=== PATIENT | female | born 1935 | race Caucasian/White ===

== ENCOUNTER → 2017-02-20 | Outpatient (CLI) | payer OTHER ==
[~2017-02-20] MED LIST: AMIODARONE HCL200 MG PO; CALCIUM 600 +1 EAC1 PO; CALCIUM 600 +1 EAC4 PO; CALCIUM 600 W/D1 TA1 PO; DIOVAN160 MG PO; DURAGESIC1 EAC2 TOP; ESTRING1 EACH VAG; FISH OIL 1,2001 CAP PO; FISH OIL EC 1,1 EAC2 PO; KLOR-CON PO; LEVAQUIN750 MG PO; LISINOPRIL20 MG PO; MAGNESIUM400 M1 PO; MIRALAX17 GM PO; MULTIVITAMINS1 EAC3 PO; PATIENT'S PHARMACY; PRAVACHOL20 MG PO; PRAVASTATIN SOD20 MG PO; PRILOSEC PO; PROTONIX PO; TAMIFLU75 M1 PO; VALSARTAN-HCTZ1 EAC2 PO; VITAMIN B-12500 MCG PO; VITAMIN C500 M6 PO; VITAMIN C500 MG PO; VITAMIN D2000 UNIT PO; ZOFRAN PO
--- NOTE | ~2017-02-20 | CT55 ---
[facility]. [facility] A Service of [facility] RADIOLOGY TEXT RESULTS PATIENT: RAGHU BANKS LOCATION: [facility] : 36 UNIT #: [id number] AGE: [address]: Devon Torres MD SEX: F ORDER DR: [id number] [address] [address] [id number] P MR#: [id number] Acc #: [id number] NAME: RAGHU BANKS : 1935 SEX: F STUDY DATE/TIME: 02/20/2017 12:43 UNIT: [facility] ROOM: STUDY DESCRIPTION: CT Chest W Con Attending Physician: Devon Torres M.D. Ordering Physician: Devon Torres M.D. Primary Care Physician: Devon Torres M.D. MEDICAL IMAGING REPORT This report is preliminary unless electronic signature is present. EXAM CT scan chest without contrast. HISTORY Right upper lobe infiltrate. Right upper back pain for 3-4 months. Abnormal chest x-ray 02/11/2017. TECHNIQUE Axial 5 mm images were obtained through the chest with IV contrast. The patient was given 100 mL Isovue 370. This CT exam was performed with one or more of the following radiation dose reduction techniques: automatic exposure control, adjustment of mA and/or kV according to patient size, and iterative reconstruction. FINDINGS The left lung is clear. In the right upper lobe there are multiple areas of abnormal density with largest area extending upwards from the alejandro and measuring at least 4-5 cm in diameter. Smaller areas are 3 cm in diameter. The large right paratracheal soft tissue mass measuring 3.8 cm in diameter and there is a large right hilar mass surrounding the right upper lobe bronchus measuring 4.8 cm. The mass also surrounds the right upper lobe pulmonary artery. There is a subcarinal node measuring 2.7 cm in diameter. The visualized portions of the upper abdomen show a densely calcified cyst in the spleen measuring 18 mm in diameter. IMPRESSION 1. There is a large right sided mediastinal mass with soft tissue extending from the level of the marianne up along the right paratracheal region and surrounding the right upper lobe bronchus and the pulmonary artery consistent with malignancy. There are patchy areas of abnormal density in the right upper lobe which could STS. [facility] A Service of [facility] RADIOLOGY TEXT RESULTS PATIENT: RAGHU BANKS LOCATION: [facility] : 36 UNIT #: [id number] AGE: [address]: Devon Torres MD SEX: F ORDER DR: presumably represent direct spread of tumor since these are contiguous with the abnormality. There is also a subcarinal lymph node. 2. The left lung is clear. 1. 1. Dictated by... Rubén Kraft M.D. THIS IS AN ELECTRONICALLY VERIFIED REPORT Rubén Kraft M.D. at 02/23/2017 3:40 PM Juan Antonio TD: 02/21/2017 08:26 JOB #: [id number] MEDICAL IMAGING REPORT Page 1 of 1
[2017-02-20 12:40] LABS: POC - GFR >60.0 mL/min (>60)
== END | disposition home or self-care (01) ==
LOC: SCT 08:25
PROVIDERS: Family Medicine
DX: R06.02 Shortness of breath (principal); R93.8 Abnormal findings on diagnostic imaging of other specified body structures; J98.4 Other disorders of lung; J98.59 Other diseases of mediastinum, not elsewhere classified
CPT/HCPCS: 71260; 82565; Q9967

== ENCOUNTER → 2017-03-12 | Outpatient (CLI) | payer OTHER ==
--- NOTE | ~2017-03-12 | CR71 ---
[facility] A Service of [facility] RADIOLOGY TEXT RESULTS PATIENT: RAGHU BANKS LOCATION: CIVR : 36 UNIT #: [id number] AGE: [address]: Homero Kasper MD SEX: F ORDER DR: [id number] [facility] [address]. [place], [place] [address] [id number] O MR#: [id number] Acc #: [id number] NAME: RAGHU BANKS : 1935 SEX: F STUDY DATE/TIME: 03/12/2017 9:34 UNIT: PSYCHIATRIC ROOM: STUDY DESCRIPTION: CR Chest Single View Attending Physician: Homero Kasper M.D. Ordering Physician: Edis Armendariz M.D. Primary Care Physician: Devon Torres M.D. MEDICAL IMAGING REPORT This report is preliminary unless electronic signature is present EXAM Portable chest x-ray, 03/12/2017. HISTORY Post biopsy. Right-side lung mass post biopsy. TECHNIQUE AP radiograph of chest is viewed in comparison to CT chest 02/20/2017. FINDINGS No acute-appearing bony abnormality. The heart is normal in size. Lungs are well inflated. Abnormal soft tissue right paratracheal region consistent with known mediastinal mass/adenopathy. Soft tissue fullness in the right suprahilar region consistent with findings on CT examination also reflecting known mass. Patchy somewhat nodular densities in the right upper lung zone. Again, appearance is consistent with prior CT and probably reflects a combination of neoplastic disease and perhaps some components of postobstructive pneumonia. Right lower lung zone is clear. The left lung is clear. No pleural effusion or pneumothorax is seen. Dictated by... Edis Macdonald M.D. THIS IS AN ELECTRONICALLY VERIFIED REPORT Edis Macdonald M.D. at 03/13/2017 7:14 PM MARK/tamela TD: 03/12/2017 10:28 JOB #: [id number] MEDICAL IMAGING REPORT [facility] A Service of [facility] RADIOLOGY TEXT RESULTS PATIENT: RAGHU BANKS LOCATION: [facility] #: [id number] : 37 UNIT #: [id number] AGE: [address]: Homero Kasper MD SEX: F ORDER DR: Page 1 of 1 COPY
--- NOTE | ~2017-03-12 | CR72 ---
[facility] A Service of [facility] RADIOLOGY TEXT RESULTS PATIENT: RAGHU BANKS LOCATION: [facility] : 36 UNIT #: [id number] AGE: [address]: Homero Kasper MD SEX: F ORDER DR: [id number] [facility] [address] [facility] [place], [place] [address] [id number] O MR#: [id number] Acc #: [id number] NAME: RAGHU BANKS : 1935 SEX: F STUDY DATE/TIME: 03/12/2017 11:17 UNIT: [facility] ROOM: STUDY DESCRIPTION: CR Chest Single View Portable Attending Physician: Homero Kasper M.D. Ordering Physician: Edis Armendariz M.D. Primary Care Physician: Devon Torres M.D. MEDICAL IMAGING REPORT This report is preliminary unless electronic signature is present EXAM AP portable chest. DATE 03/12/2017 at 1117. HISTORY Right lung mass post biopsy today. COMPARISON AP portable chest 03/12/[address] chest right lung mass biopsy 03/12/2017 at 0836. PA and lateral chest 02/11/2017. FINDINGS No pneumothorax is seen status post right sided mass biopsy earlier today. Airspace disease is present within the right upper lobe. Right paratracheal and right hilar adenopathy is redemonstrated. Background emphysematous changes are present. IMPRESSION 1. No visible pneumothorax status post right lung mass biopsy earlier today. 2. Airspace disease in the right upper lobe unchanged, may represent postobstructive pneumonitis and/or tumor. 3. Abnormal soft tissue thickening in the right paratracheal and right hilar regions consistent with adenopathy seen on recent CT. 4. Mild emphysematous changes. Dictated by... Bettie Wiley M.D. [facility] A Service of [facility] RADIOLOGY TEXT RESULTS PATIENT: RAGHU BANKS LOCATION: [facility] : 36 UNIT #: [id number] AGE: [address]: Homero Kasper MD SEX: F ORDER DR: THIS IS AN ELECTRONICALLY VERIFIED REPORT Bettie Wiley M.D. at 03/13/2017 2:22 PM YUE/tamela TD: 03/12/2017 17:23 JOB #: [id number] MEDICAL IMAGING REPORT Page 1 of 1 COPY
--- NOTE | ~2017-03-12 | CT134 ---
[facility] A Service [facility] RADIOLOGY TEXT RESULTS PATIENT: RAHGU BANKS LOCATION: [facility] : 36 UNIT #: [id number] AGE: [address]: Homero Kasper MD SEX: F ORDER DR: [id number] [place], [place] [address] [id number] O MR#: [id number] Acc #: [id number] NAME: RAGHU BANKS : 1935 SEX: F STUDY DATE/TIME: 03/12/2017 8:36 UNIT: [facility] ROOM: STUDY DESCRIPTION: CT Guide Attending Physician: Homero Kasper M.D. Ordering Physician: Homero Kasper M.D. Primary Care Physician: Devon Torres M.D. MEDICAL IMAGING REPORT This report is preliminary unless electronic signature is present REVISED REPORT SEE ADDENDUM EXAMINATION CT guided lung biopsy HISTORY Right upper lobe mass with right paramediastinal lymphadenopathy. FINDINGS Procedure and attendant risks and options were discussed with the patient. She understands and wishes to proceed. Informed written consent was obtained. Patient was placed in the supine position. Subsequently scanned and the patient marked. The skin was then cleaned with Chlorhexidine and sterilely draped. The skin was anesthetized with Xylocaine. Utilizing a green coaxial system a 19 gauge needle was advanced into the paramediastinal nodes and multiple aspirations and specimens were obtained and submitted to pathology. Initial touch prep is positive for carcinoma. Needle was removed. Hemostasis achieved. Chest x-rays at zero and two hours post procedure show no pneumothorax. Patient was subsequently discharged home to follow up with Dr. Kasper. Permanent CT images were acquired. CONCLUSION 1. Successful CT guided biopsy of the patient's right paramediastinal nodes. ADDENDUM Conscious sedation was administered consistent with IV Versed and Fentanyl [facility] A Service [facility] RADIOLOGY TEXT RESULTS PATIENT: RAGHU BANKS LOCATION: [facility] : 36 UNIT #: [id number] AGE: [address]: Homero Kasper MD SEX: F ORDER DR: and the patient was monitored by the IR nurse during the entire procedure. Dictated by... Edis Armendariz M.D. THIS IS AN ELECTRONICALLY VERIFIED REPORT Edis Armendariz M.D. at 03/13/2017 4:26 PM JW/ada TD: 03/12/2017 13:11 JOB #: [id number] ADDENDUM Clarification of the biopsy target. The right upper mediastinal mass was targeted for biopsy as it was the largest and safest target for biopsy. Dictated by... Vega Pandya M.D. THIS IS AN ELECTRONICALLY VERIFIED REPORT Vega Pandya M.D. at 05/25/2017 8:18 AM DALLAS/tamela TD: 05/21/2017 11:36 JOB #: [id number] CC: Christie/chica Please Delete MEDICAL IMAGING REPORT Page 1 of 1 COPY
[2017-03-12 06:42] LABS: HEMATOCRIT 38.2 % (35.0-45.0); HEMOGLOBIN 13.3 gm/dL (12.0-16.0); MEAN CELL VOLUME 84.4 FL (83-96); MEAN CORPUSCULAR HEMOGLOBIN 29.4 PG (28-34); MEAN CORPUSCULAR HGB CONC 34.9 g/dL (30-36); MEAN PLATELET VOLUME 6.9 FL (6.5-11.5); RED BLOOD COUNT 4.53 X10e (3.90-5.30); RED CELL DISTRIBUTION WIDTH 12.5 % (11.0-15.5); WHITE BLOOD COUNT 5.2 X10e3 (4.0-10.5)
[2017-03-12 06:56] LABS: PARTIAL THROMBOPLASTIN TIME 33.9 SECONDS (23.5-31.3); PROTHROMBIN TIME (PATIENT) 10.7 SECONDS (9.6-11.5)
== END | disposition home or self-care (01) ==
LOC: CIVR 06:14
PROVIDERS: Internal Medicine Medical Oncology
DX: C38.3 Malignant neoplasm of mediastinum, part unspecified (principal); C34.91 Malignant neoplasm of unspecified part of right bronchus or lung; I10 Essential (primary) hypertension; E78.5 Hyperlipidemia, unspecified; R73.09 Other abnormal glucose; K21.9 Gastro-esophageal reflux disease without esophagitis; Z80.1 Family history of malignant neoplasm of trachea, bronchus and lung; Z87.891 Personal history of nicotine dependence; Z80.0 Family history of malignant neoplasm of digestive organs
CPT/HCPCS: 36415; 71010; 77012; 85027; 85610; 85730; 88172; 88173; 88305; 88341; 88342; J2250; J3010

== ENCOUNTER 2017-03-19 10:04 | Inpatient (IN) | payer OTHER ==
--- NOTE | ~2017-03-19 | CT52 ---
[facility] A Service of [facility] RADIOLOGY TEXT RESULTS PATIENT: RAGHU BANKS LOCATION: [facility]- : 36 UNIT #: [id number] AGE: [address]: ADRIAN LIEBERMAN MD SEX: F ORDER DR: [id number] [facility] [address] [facility]. [place], [place] [address] [id number] E MR#: [id number] Acc #: [id number] NAME: RAGHU BANKS : 1935 SEX: F STUDY DATE/TIME: 03/19/2017 11:55 UNIT: [facility] ROOM: STUDY DESCRIPTION: CT Cervical Spine Wo Cont Attending Physician: Baldemar Varghese M.D. Ordering Physician: Baldemar Varghese M.D. Primary Care Physician: Devon Torres M.D. MEDICAL IMAGING REPORT This report is preliminary unless electronic signature is present EXAM Cervical spine CT 03/19 INDICATION Fell today at home. The patient has subsequent headache, dizziness and neck pain. TECHNIQUE Axial images were obtained through the cervical spine without contrast. Multiplanar reformats were obtained. This CT exam was performed with one or more of the following radiation dose reduction techniques: automatic exposure control, adjustment of mA and/or kV according to patient size, and iterative reconstruction. COMPARISON No comparison FINDINGS No acute fracture or malalignment is identified. At C2-3, there is a very mild disc bulge slightly eccentric to the left. No central canal or foraminal narrowing. There is mild bilateral facet arthropathy. At C3-4, mild posterior disc bulge without significant central canal or neuroforaminal stenosis. Mild bilateral facet arthropathy is present. At C4-5, minimal central disc bulge without central canal or foraminal stenosis. There is bilateral facet arthropathy. At C5-6, the disc is within normal limits. There is right greater than [facility] A Service of [facility] RADIOLOGY TEXT RESULTS PATIENT: RAGHU BANKS LOCATION: [facility]- : 36 UNIT #: [id number] AGE: [address]: ADRIAN LIEBERMAN MD SEX: F ORDER DR: left facet arthropathy. At C6-7, minimal disc bulge noted without central canal or foraminal stenosis. At C7-T1, the disc is within normal limits. There is enlargement of the left thyroid lobe, which presumably reflects a goiter. This could be evaluated with outpatient thyroid ultrasound if indicated. Lung windows reveal parenchymal densities in the right apex that are not significantly changed from the chest CT of 02/20/2017. IMPRESSION 1. No acute fracture or malalignment. 2. Relatively mild degenerative disease for patient age. 3. Left thyroid enlargement suggesting a goiter. This could be assessed with outpatient thyroid ultrasound if desired. 4. Stable parenchymal densities in the right lung apex as compared with chest CT of 02/20/2017. Dictated by... Justin Day Jr., M.D. THIS IS AN ELECTRONICALLY VERIFIED REPORT Justin Day Jr., M.D. at 03/20/2017 6:10 AM ZEYNEP/dori TD: 03/19/2017 14:57 JOB #: [id number] MEDICAL IMAGING REPORT Page 1 of 1 COPY
--- NOTE | ~2017-03-19 | DS ---
Unit #: [id number] #: [id number] Patient: RAGHU BANKS [id number] [address] [address] [id number] I MR#: [id number] NAME: RAGHU BANKS ROOM: 305 Age: 81 Sex: F Admission Date: 03/19/2017 : 1935 Discharge Date: Attending Physician: Steffi Reinoso M.D. Primary Care Physician: Devon Torres M.D. DISCHARGE SUMMARY DISCHARGE DIAGNOSES 1. Small cell neuroendocrine lung cancer. 2. 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 3. Fall. 4. Thoracic 12 compression fracture. 5. Anemia, acute on chronic iron deficiency. 6. Atrial fibrillation with rapid ventricular rate. 7. History of gastroesophageal reflux disease. CONSULTATIONS 1. Dr. Myles. 2. Dr. Kasper. PROCEDURES None. DIAGNOSTIC TESTING LAB DATA: Glucose 95, sodium 130, potassium 5, creatinine 1.3. WBC 8, hemoglobin 10.7, platelets 338. Urine osmolality 177. TSH 0.63. IMAGING: CT of the head shows no acute abnormality. X-ray of the lumbar spine shows T12 vertebral loss, around 33%. CT of the cervical spine without contrast shows no acute fracture, mild degenerative changes present. Left thyroid enlargement suggesting goiter present. ALLERGIES None. DISCHARGE MEDICATIONS 1. Amiodarone 200 p.o. daily. 2. Tylenol 650 p.o. q.6 p.r.n. pain. 3. Pravachol 20 daily. 4. Olar 3 fish oil 1,200 mg p.o. daily. 5. Multivitamin 1 tablet daily. 6. Aspirin 81 daily. 7. Percocet 5 mg q.6 p.r.n. pain. 8. Prilosec 20 daily. 9. Calcium with vitamin D 600 mg p.o. daily. 10. Ascorbic acid 500 daily. Unit #: [id number] #: [id number] Patient: RAGHU BANKS HOSPITALIZATION COURSE An 81 year old admitted because of fall. Small cell lung cancer. Patient seen by Dr. Kasper. Patient supposed to have MRI of the brain and PET scan as an outpatient, but she was admitted because of fall. Patient will go to rehab now, and upon discharge, the patient will follow Dr. Kasper as an outpatient for PET scan and MRI. Patient needs radiation and chemotherapy after discharge from rehab according to Dr. Kasper. Atrial fibrillation with rapid ventricular rate. Patient was seen by cardiology. Patient was started on amiodarone. Currently in sinus rhythm. No anticoagulation because of fall. 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 Currently sodium is 130, stable. Patient received IV fluids initially. Acute on chronic iron deficiency anemia, stable. No active bleeding. Fall with T12 compression fracture, 30%. Pain is well controlled with Percocet. Continue with that. DISCHARGE PLAN 1. Discharge to rehab. 2. Follow with Dr. Kasper upon discharge from rehab in 2 weeks' time for outpatient workup of her cancer. NOTE: Discharge time taken is 31 minutes. Dictated by... Soledad Lewis/evelia TD: 03/24/2017 13:26 JOB #: [id number] DISCHARGE SUMMARY Page 1 of 1 X Steffi Reinoso MD X DISCHARGE SUMMARY
--- NOTE | ~2017-03-19 | CT71 ---
[facility] A Service of [facility] RADIOLOGY TEXT RESULTS PATIENT: RAGHU BANKS LOCATION: A 305-01 : 36 UNIT #: [id number] AGE: [address]: Steffi Reinoso MD SEX: F ORDER DR: [id number] [facility] [address]. [place], [place] [address] [id number] E MR#: [id number] Acc #: [id number] NAME: RAGHU BANKS : 1935 SEX: F STUDY DATE/TIME: 03/19/2017 11:55 UNIT: [facility] ROOM: STUDY DESCRIPTION: CT Head Wo Contrast Attending Physician: Baldemra Varghese M.D. Ordering Physician: Baldemar Varghese M.D. Primary Care Physician: eDvon Torres M.D. MEDICAL IMAGING REPORT This report is preliminary unless electronic signature is present EXAM CT head HISTORY Fall today at home, dizziness, headache times today. Pain lower back neck. Hit head. TECHNIQUE CT head performed skull base through vertex without intravenous contrast. This CT exam was performed with one or more of the following radiation dose reduction techniques: automatic exposure control, adjustment of mA and/or kV according to patient size, and iterative reconstruction. COMPARISON No prior studies for comparison. FINDINGS The brainstem is unremarkable. The cerebellum and cerebral hemispheres show normal mandujano matter-white matter differentiation. No intracranial hemorrhage. No evidence of acute cortical ischemia. Periventricular deep white matter tract hypodensities most consistent with sequelae of chronic microvascular ischemia based on patient's age and statistics. No acute-appearing basal ganglia abnormality. Ventricles, cisterns and sulci show mild generalized enlargement consistent with mild generalized atrophy. There is no intra or extraaxial mass effect or abnormal intracranial fluid collection. Intraorbital soft tissues unremarkable. The visualized paranasal sinuses and mastoid air cells are clear. No fracture. IMPRESSION 1. No acute abnormality seen in the brain. If the patient has ongoing neurologic symptoms, consider followup imaging, preferably with MRI [facility] A Service [facility] RADIOLOGY TEXT RESULTS PATIENT: RAGHU BANKS LOCATION: [facility] 305-01 : 36 UNIT #: [id number] AGE: [address]: Steffi Reinoso MD SEX: F ORDER DR: if patient is a candidate. 2. Mild generalized atrophy. 3. Periventricular and deep white matter tract probable sequelae of chronic microvascular ischemia. 4. Vascular calcifications. 5. No fracture. Dictated by... Edis Macdonald M.D. THIS IS AN ELECTRONICALLY VERIFIED REPORT Edis Macdonald M.D. at 03/21/2017 10:28 PM Andrés TD: 03/19/2017 14:57 JOB #: [id number] MEDICAL IMAGING REPORT Page 1 of 1 COPY
--- NOTE | ~2017-03-19 | CR181 ---
[facility] A Service of [facility] RADIOLOGY TEXT RESULTS PATIENT: RAGHU BANKS LOCATION: [facility] 305-01 : 37 UNIT #: [id number] AGE: [address]: Steffi Reinoso MD SEX: F ORDER DR: [id number] [facility] [address] [place], [place] [address] [id number] E MR#: [id number] Acc #: [id number] NAME: RAGHU BANKS : 1935 SEX: F STUDY DATE/TIME: 03/19/2017 11:38 UNIT: [facility] ROOM: STUDY DESCRIPTION: CR Lumbar Spine 2 or 3 Views Attending Physician: Baldemar Varghese M.D. Ordering Physician: Baldemar Varghese M.D. Primary Care Physician: Devon Torres M.D. MEDICAL IMAGING REPORT This report is preliminary unless electronic signature is present EXAM Lumbar spine series 03/19/2017 INDICATIONS Pain in lower back. Patient fell today. TECHNIQUE AP and lateral radiographs of the lumbar spine are presented. COMPARISON CT chest 02/20/2017. FINDINGS Compared to CT chest dated 02/20/2017, there is a new anterior wedge compression deformity of the T12 vertebral body with loss of height anteriorly about 33%. Given the stated trauma, this is presumed secondary to the patient's fall and to be acute in time course. Best further evaluated with CT examination. I see no indication of posterior cortex retropulsion. No displaced fragments are seen. Other vertebral body heights are normal. Mild narrowing L4-L5 intervertebral disc space. Mild to moderate facet degenerative changes throughout the lumbar spine. The remainder of visualized lower thoracic spine is unremarkable aside from the T12 compression fracture. Visualized bony pelvis appears intact. Bowel gas pattern normal. Extensive vascular calcification. A rim-calcified structure in the left upper quadrant is a rim-calcified splenic cyst on basis of prior CT examination. Dictated by... Edis Macdonald M.D. THIS IS AN ELECTRONICALLY VERIFIED REPORT [facility] A Service of [facility] RADIOLOGY TEXT RESULTS PATIENT: RAGHU BANKS LOCATION: A 305-01 : 37 UNIT #: [id number] AGE: [address]: Steffi Reinoso MD SEX: F ORDER DR: Edis Macdonald M.D. at 03/21/2017 10:28 PM MARK/annie TD: 03/19/2017 14:43 JOB #: [id number] MEDICAL IMAGING REPORT Page 1 of 1 COPY
--- NOTE | ~2017-03-19 | HP ---
Unit #: [id number] #: [id number] Patient: RAGHU BANKS [id number] [address] [address] [id number] E MR#: [id number] NAME: RAGHU BANKS ROOM: Age: 81 Sex: F Admission Date: 03/19/2017 : 1935 Attending Physician: Baldemar Varghese M.D. Primary Care Physician: Devon Torres M.D. HISTORY AND PHYSICAL CHIEF COMPLAINT Fall. HISTORY OF PRESENT ILLNESS The patient is an 81-year-old female with a history of hypertension, recently diagnosed biopsy of the right lung mass that is positive for small cell neuroendocrine carcinoma. She was brought to the emergency room status post fall. The patient stated the patient was trying to open the dining room blinds and then she felt dizziness and then she fell down on the back. The patient complains of back pain. She had an x-ray of the spine that shows a T12 compression fracture. The patient has not been eating well since the diagnosis of the cancer; status post biopsy of the lung mass on 03/13 and was started on the pain medications, on hydrocodone. The patient has been admitted for the above reason. The patient's sodium is down to 118. PAST MEDICAL HISTORY 1. History of lung cancer. 2. Gastroesophageal reflux disease. PAST SURGICAL HISTORY Lung biopsy. HOME MEDICATIONS 1. Valsartan/hydrochlorothiazide. 2. Pravastatin. 3. Lortab. ALLERGIES No known drug allergies. SOCIAL HISTORY No history of smoking, alcohol, or any illicit drug abuse. FAMILY HISTORY Rectal cancer, lung cancer. REVIEW OF SYSTEMS A 14-point review of systems performed and only pertinent positive findings are as described above, remaining are negative. PHYSICAL EXAMINATION VITAL SIGNS: Temperature 97.8, pulse 70, respiratory rate 16, blood pressure 133/100, saturating 97% on room air. Unit #: [id number] #: [id number] Patient: RAGHU BANKS GENERAL: Patient is lying on the bed not in acute distress. HEENT: Atraumatic, normocephalic. Pupils equal, round, and reactive to light and accommodation. Extraocular movements are intact. Dry mucous membrane. NECK: Supple. LUNGS: Decreased air entry at the bases. HEART: Regular rate and rhythm. ABDOMEN: Soft, positive bowel sounds. EXTREMITIES: No cyanosis, no clubbing. BACK: Patient has tenderness at the vertebra T12. NEUROLOGIC: Alert, awake, oriented and hard of hearing. DIAGNOSTIC STUDIES LABORATORY: WBC 15.6, hemoglobin 13.7, hematocrit 39.7, platelets 346, neutrophils 84%. Sodium 118, potassium 3.4, chloride 76, bicarb 26, glucose 136, BUN 16, creatinine 0.8. UA negative. IMAGING: X-ray of the lumbar spine shows the remainder of the visualized lower thoracic spine is unremarkable aside from the T12 compression fracture. CT of the head is no acute abnormalities seen. CT of the cervical spine no acute fractures or malalignment is identified. ASSESSMENT AND PLAN 1. Status post fall. 2. T12 compression fracture. 3. Small cell neuroendocrine lung cancer. PLAN 1. Admit patient as inpatient. 2. Start IV fluids normal saline at 75 mL per hour. 3. Continue with the pain medications. 4. Physical therapy. 5. Probably IR for the kyphoplasty if needed. 6. Will have Oncology consult as the patient was supposed to followup with Oncology today. 7. Further recommendations will follow. Dictated by Soledad Dasilva/vivien TD: 03/19/2017 15:57 JOB #: [id number] Unit #: [id number] #: [id number] Patient: RAGHU BANKS HISTORY AND PHYSICAL Page 1 of 1 X ADRIAN LIEBERMAN MD X HISTORY AND PHYSICAL
--- NOTE | ~2017-03-19 | EKG ---
PATIENT: RAGHU BANKS UNIT #: [id number] Ventricular Rate: 65 BPM Atrial Rate: 65 BPM P-R Interval: 186 ms QRS Duration: 108 ms Q-T Interval: 406 ms QTC Calculation(Bezet): 422 ms P Douglass: 63 degrees Calculated R Douglass: 61 degrees Calculated T Douglass: -111 degrees Diagnosis Line: Sinus rhythm with Premature atrial complexes Diagnosis Line: Incomplete left bundle branch block Diagnosis Line: ST and T wave abnormality, consider inferolateral Diagnosis Line: ischemia Diagnosis Line: Abnormal ECG Diagnosis Line: When compared with ECG of 28-NOV-2011 06:22, Diagnosis Line: Premature atrial complexes are now Present Diagnosis Line: T wave inversion more evident in Inferior leads Diagnosis Line: T wave inversion now evident in Lateral leads Diagnosis Line: Confirmed by SALMA RAIN MD ([id number]) on Diagnosis Line: 03/21/2017 1:05:21 PM INTERPRETING MD: CYNTHIA
[~2017-03-19 10:04] MED LIST changes: -AMIODARONE HCL200 MG PO; -CALCIUM 600 +1 EAC4 PO; -DIOVAN160 MG PO; -DURAGESIC1 EAC2 TOP; -ESTRING1 EACH VAG; -FISH OIL 1,2001 CAP PO; -KLOR-CON PO; -LISINOPRIL20 MG PO; -MAGNESIUM400 M1 PO; -MIRALAX17 GM PO; -PATIENT'S PHARMACY; -PRAVASTATIN SOD20 MG PO; -PROTONIX PO; -VITAMIN C500 MG PO; -ZOFRAN PO
[2017-03-19 11:47] LABS: BASOPHIL# 0.1 X10e3 (0-0.3); BASOPHIL% 0.6 % (0-2.5); EOSINOPHIL% 0.2 % (0.0-7.0); HEMATOCRIT 39.7 % (35.0-45.0); HEMOGLOBIN 13.7 gm/dL (12.0-16.0); LYMPHOCYTE# 1.2 X10e3 (1.0-3.5); LYMPHOCYTE% 7.9 % (17.0-45.0); MEAN CELL VOLUME 84.8 FL (83-96); MEAN CORPUSCULAR HEMOGLOBIN 29.2 PG (28-34); MEAN CORPUSCULAR HGB CONC 34.4 g/dL (30-36); MEAN PLATELET VOLUME 7.7 FL (6.5-11.5); MONOCYTE# 1.1 X10e3 (0-1.0); MONOCYTE% 7.3 % (3.0-12.0); NEUTROPHIL# 13.1 X10e3 (1.5-7.1); PLATELET COUNT 346 X10e3 (140-420); RED BLOOD COUNT 4.68 X10e (3.90-5.30); WHITE BLOOD COUNT 15.6 X10e3 (4.0-10.5)
[2017-03-19 11:48] LABS: DIFF IND YES
[2017-03-19 12:12] LABS: ALBUMIN SERUM 4.2 g/dL (3.5-5.0); BILIRUBIN, DIRECT 0.1 mg/dL (0.0-0.2); BILIRUBIN,INDIRECT 0.7 mg/dL (0.0-0.9); BILIRUBIN,TOTAL 0.8 mg/dL (0.2-2.0); CALCIUM SERUM 10.1 mg/dL (8.4-10.2); CREATININE SERUM 0.8 mg/dL (0.6-1.4); GLOM FILT RATE Estimated 69.7 mL/min (>60); POTASSIUM 3.4 mmol/L (3.5-5.1); PROTEIN TOTAL SERUM 7.8 g/dL (6.0-8.3)
[2017-03-19 12:14] LABS: ANISOCYTOSIS SL; PLATELET ESTIMATE NORMAL (NORMAL)
[2017-03-19 14:08] LABS: URINE SOURCE CLEAN CATCH
[2017-03-19 14:26] LABS: URINE APPEARANCE CLEAR; URINE BILIRUBIN NEG (NEG); URINE BLOOD NEG (NEG); URINE COLOR YELLOW; URINE GLUCOSE NEG (NEG); URINE KETONE 2+ (NEG); URINE LEUKOCYTE ESTERASE NEG (NEG); URINE NITRATE NEG (NEG); URINE PH 5.5 (5-8); URINE PROTEIN NEG (NEG); URINE SPECIFIC GRAVITY 1.017 (1.003-1.035)
[2017-03-19 14:27] LABS: CULTURE INDICATED? NO
[2017-03-20 05:19] LABS: HEMATOCRIT 32.2 % (35.0-45.0); MEAN CELL VOLUME 86.1 FL (83-96); MEAN CORPUSCULAR HEMOGLOBIN 29.6 PG (28-34); MEAN CORPUSCULAR HGB CONC 34.3 g/dL (30-36); MEAN PLATELET VOLUME 6.9 FL (6.5-11.5); RED BLOOD COUNT 3.74 X10e (3.90-5.30); RED CELL DISTRIBUTION WIDTH 12.9 % (11.0-15.5); WHITE BLOOD COUNT 9.5 X10e3 (4.0-10.5)
[2017-03-20 05:20] LABS: HEMOGLOBIN 11.1 gm/dL (12.0-16.0)
[2017-03-20 06:03] LABS: BUN/CREATININE RATIO 14.54; CALCIUM SERUM 8.8 mg/dL (8.4-10.2); CREATININE SERUM 1.1 mg/dL (0.6-1.4); GLOM FILT RATE Estimated 47.4 mL/min (>60); POTASSIUM 3.4 mmol/L (3.5-5.1)
[2017-03-21 05:33] LABS: HEMOGLOBIN 11.4 gm/dL (12.0-16.0); MEAN CORPUSCULAR HEMOGLOBIN 29.6 PG (28-34); MEAN CORPUSCULAR HGB CONC 34.4 g/dL (30-36); RED BLOOD COUNT 3.84 X10e (3.90-5.30); RED CELL DISTRIBUTION WIDTH 13.2 % (11.0-15.5); WHITE BLOOD COUNT 9.3 X10e3 (4.0-10.5)
[2017-03-21 06:42] LABS: ALBUMIN SERUM 3.1 g/dL (3.5-5.0); BUN/CREATININE RATIO 16.66; CALCIUM SERUM 9.4 mg/dL (8.4-10.2); CREATININE SERUM 1.2 mg/dL (0.6-1.4); GLOM FILT RATE Estimated 42.7 mL/min (>60); MAGNESIUM 2.4 mg/dL (1.6-3.0); PHOSPHOROUS 3.8 mg/dL (2.5-4.6); POTASSIUM 4.5 mmol/L (3.5-5.1); PROTEIN TOTAL SERUM 6.2 g/dL (6.0-8.3)
[2017-03-21 17:44] LABS: BUN/CREATININE RATIO 16.42; CALCIUM SERUM 9.7 mg/dL (8.4-10.2); CREATININE SERUM 1.4 mg/dL (0.6-1.4); GLOM FILT RATE Estimated 35.4 mL/min (>60); POTASSIUM 4.7 mmol/L (3.5-5.1)
[2017-03-22 04:35] LABS: BUN/CREATININE RATIO 14.11; CALCIUM SERUM 9.7 mg/dL (8.4-10.2); CREATININE SERUM 1.7 mg/dL (0.6-1.4); MAGNESIUM 2.6 mg/dL (1.6-3.0); POTASSIUM 4.9 mmol/L (3.5-5.1)
[2017-03-22 14:43] LABS: BUN/CREATININE RATIO 15.33; CALCIUM SERUM 9.9 mg/dL (8.4-10.2); CREATININE SERUM 1.5 mg/dL (0.6-1.4); GLOM FILT RATE Estimated 32.6 mL/min (>60)
[2017-03-23 05:46] LABS: CALCIUM SERUM 9.7 mg/dL (8.4-10.2); CREATININE SERUM 1.6 mg/dL (0.6-1.4); GLOM FILT RATE Estimated 30.1 mL/min (>60); POTASSIUM 4.4 mmol/L (3.5-5.1)
[2017-03-24 05:02] LABS: HEMATOCRIT 31.9 % (35.0-45.0); HEMOGLOBIN 10.7 gm/dL (12.0-16.0); MEAN CELL VOLUME 86.8 FL (83-96); MEAN CORPUSCULAR HEMOGLOBIN 29.1 PG (28-34); MEAN CORPUSCULAR HGB CONC 33.5 g/dL (30-36); MEAN PLATELET VOLUME 7.3 FL (6.5-11.5); RED BLOOD COUNT 3.67 X10e (3.90-5.30); RED CELL DISTRIBUTION WIDTH 13.2 % (11.0-15.5)
[2017-03-24 06:07] LABS: BUN/CREATININE RATIO 13.84; CALCIUM SERUM 9.7 mg/dL (8.4-10.2); CREATININE SERUM 1.3 mg/dL (0.6-1.4); GLOM FILT RATE Estimated 38.7 mL/min (>60)
[2017-07-08] MEDS ORDERED: LISINOPRIL20 MG PO (04:44)
== END 2017-03-25 18:08 | DRG 552 ==
LOC: CED 10:04 → CEDOF 15:40 → CED 15:55 → CEDOF 15:55 → C3A PCU 19:56 → CEDOF 19:56 → C3A PCU 19:56 → C2A 03-24 14:37
PROVIDERS: Emergency Medicine; Internal Medicine
PROC: B246YZZ Ultrasonography of Right and Left Heart using Other Contrast (ICD-10-PCS; principal; 2017-03-21)
DX: S22.089A Unspecified fracture of T11-T12 vertebra, initial encounter for closed fracture (principal); N17.9 Acute kidney failure, unspecified; E22.2 Syndrome of inappropriate secretion of antidiuretic hormone; E44.1 Mild protein-calorie malnutrition; W18.30XA Fall on same level, unspecified, initial encounter; Y92.019 Unspecified place in single-family (private) house as the place of occurrence of the external cause; D50.9 Iron deficiency anemia, unspecified; I48.91 Unspecified atrial fibrillation; K21.9 Gastro-esophageal reflux disease without esophagitis; Z80.1 Family history of malignant neoplasm of trachea, bronchus and lung; Z80.0 Family history of malignant neoplasm of digestive organs; E78.5 Hyperlipidemia, unspecified; E87.6 Hypokalemia; E83.42 Hypomagnesemia; M81.0 Age-related osteoporosis without current pathological fracture; R41.3 Other amnesia; K59.00 Constipation, unspecified
CPT/HCPCS: 36415; 70450; 72100; 72125; 80048; 80053; 80076; 81003; 82947; 83735; 83935; 84100; 84443; 85025; 85027; 93005; 93306; 94760; 96361; 96374; 96376; 97110; 97116; 97162; 97165; 97530; 97535; 99285; G8978-GP; G8979-GP; G8980-GP; G8987-GO; G8988-GO; J2270; J2405; J3475

== ENCOUNTER → 2017-04-10 | Outpatient (CLI) | payer OTHER ==
[~2017-04-10] MED LIST changes: +AMIODARONE HCL200 MG PO; +CALCIUM 600 +1 EAC4 PO; +DIOVAN160 MG PO; +DURAGESIC1 EAC2 TOP; +ESTRING1 EACH VAG; +FISH OIL 1,2001 CAP PO; +KLOR-CON PO; +LISINOPRIL20 MG PO; +MAGNESIUM400 M1 PO; +MIRALAX17 GM PO; +PATIENT'S PHARMACY; +PRAVASTATIN SOD20 MG PO; +PROTONIX PO; +VITAMIN C500 MG PO; +ZOFRAN PO
--- NOTE | ~2017-04-10 | MR17 ---
[facility] A Service of [facility] & [facility] RADIOLOGY TEXT RESULTS PATIENT: RAGHU BANKS LOCATION: CMRI : 36 UNIT #: [id number] AGE: [address]: Homero Kasper MD SEX: F ORDER DR: [id number] [facility] [address] [place], [place] [address] [id number] O MR#: [id number] Acc #: [id number] NAME: RAGHU BANKS : 1935 SEX: F STUDY DATE/TIME: 04/10/2017 10:46 UNIT: CMRI ROOM: STUDY DESCRIPTION: MR Brain WWo Contrast Attending Physician: Homero Kasper M.D. Referring Physician: Homero Kasper M.D. Ordering Physician: Homero Kasper M.D. Primary Care Physician: Devon Torres M.D. MRI CENTER REPORT This report is preliminary unless electronic signature is present. EXAM MRI of the brain with and without contrast dated 04/10/2017. COMPARISON CT head without contrast dated 03/19/2017. HISTORY Lung cancer diagnosed about a month ago. Screening for brain metastasis and staging. FINDINGS Multisequence multiplanar imaging of the brain was obtained with and without contrast. GFR measured 38. 6 mL of Gadavist was administered intravenously. No acute stroke, enhancing mass, mass effect, midline shift or hydrocephalus. Nonenhancing scattered less than 1 cm hyperintense T2-signal lesions are noted in the subcortical and periventricular white matter. It is also seen in the kem. No enhancing lesions are noted in the brain. Thick slices through the sella with the pituitary gland, pineal region are within normal limits. Minimal degenerative disc disease is noted in the cervical spine. Nasal septum is deviated to the left. Imaged orbits with the ocular structures, paranasal sinuses, mastoids are within normal limits. IMPRESSION 1. Scattered hyperintense T2-signal lesions are noted in the brain predominately involving the periventricular, subcortical white matter and the kem. Based on age and statistics they are likely related to mild chronic microvascular ischemic change or migraine. 2. No obvious enhancing lesions to suggest metastasis. Dictated by... Marcelle Jones M.D. [facility] A Service of [facility] RADIOLOGY TEXT RESULTS PATIENT: RAGHU BANKS LOCATION: [facility] : 36 UNIT #: [id number] AGE: [address]: Homero Kasper MD SEX: F ORDER DR: THIS IS AN ELECTRONICALLY VERIFIED REPORT Marcelle Jones M.D. at 04/14/2017 9:00 PM CPR/dori TD: 04/10/2017 17:06 JOB #: [id number] MRI CENTER REPORT Page 1 of 1 COPY
== END | disposition home or self-care (01) ==
LOC: CMRI 09:27
DX: C34.90 Malignant neoplasm of unspecified part of unspecified bronchus or lung (principal); G93.89 Other specified disorders of brain; R90.82 White matter disease, unspecified
CPT/HCPCS: 70553; A9577

== ENCOUNTER 2017-05-18 09:35 | Inpatient (IN) | payer OTHER ==
[~2017-05-18] VITALS: Ht 170.2 cm; Wt 54.0 kg
--- NOTE | ~2017-05-18 | CO ---
Unit #: [id number] #: [id number] Patient: RAGHU ESPINAL [id number] [address] [place], [place] [address] [id number] I MR#: [id number] NAME: RAGHU ESPINAL ROOM: 227 Age: 82 Sex: F Admission Date: 05/18/2017 : 1935 Attending Physician: Panda Hamlin M.D. Primary Care Physician: Devon Torres M.D. Consultation Date: 05/19/2017 CONSULTATION REPORT REASON FOR CONSULTATION Abnormal CT scan, abdominal pain, and dilated common bile duct. HISTORY OF PRESENTING ILLNESS Ms. Espinal is an 82-year-old pleasant female. She was admitted yesterday complaining of abdominal pain, was found to have a fecal impaction and was given enemas with some or partial relief. She has been having multiple complaints. 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 Kasper and Dr. Chris Duggan. She has been having significant difficulty swallowing. She says she feels hungry, however was told that the tumor is close to the esophagus and she may not be able to eat good and is eating very small bites and has over 25 pounds weight loss in the last month or so. She continues to have significant constipation; however, denies any bleeding. She does have abdominal pain which is mostly in the left flank area. She denies any right upper quadrant pain or previous problems with gallbladder or pancreas. PAST MEDICAL HISTORY As above. Also with history of hypertension and hypothyroidism. MEDICATIONS At home included Prilosec, multivitamins, calcium, vitamin D, vitamin C, Pravachol, valsartan, fish oil. ALLERGIES None. SOCIAL HISTORY Previous smoker and nonalcoholic. No drug abuse. REVIEW OF SYSTEMS A complete 10-point review of systems was done, which is unremarkable other than as mentioned above. PHYSICAL EXAMINATION VITAL SIGNS: Stable. She is afebrile. Temperature 97.5, pulse 102, respirations 16, blood pressure 110/53. HEENT: Pupils are equal and reactive. Sclerae anicteric. Oral mucosa moist. NECK: No JVD. No lymphadenopathy. CHEST: Few scattered rhonchi. CARDIOVASCULAR: Regular rate and rhythm. No murmurs. Unit #: [id number] #: [id number] Patient: RAGHU ESPINAL ABDOMEN: Soft. There is significant tenderness in left side, mostly in the flank area. No guarding. No rebound. No organomegaly or ascites. EXTREMITIES: Without clubbing, cyanosis, or edema. NEUROLOGICAL: Intact. SKIN: Warm and dry. DIAGNOSTIC STUDIES LABORATORY RESULTS: LFTs are largely normal, but for alkaline phosphatase elevation of 139, has been elevated mildly for last several years. CBC shows a hemoglobin of 9.9, white count of 3.1, and platelet count of 140. CT of abdomen without contrast shows significant dilation of common bile duct to 2.[address] to ampulla at 1.8 cm. Pancrease was normal. Progressive dilation has increased from previous CT scan done, a few months ago. Gallbladder was distended also. There was also an abnormal tubular structure seen in the right lower quadrant, it could be possibly part of the ileum, however not clearly identified, may need a CT scan of the abdomen with contrast. ASSESSMENT AND PLAN 1. The patient with significant dysphagia and weight loss given that she is undergoing chemotherapy and radiation, I would recommend an upper endoscopy. If there is a significant blockage, PEG tube has to be considered also. 2. Fecal impaction, partially relieved. We will give further enemas to relieve it. Given the family history of colon cancer at some point, we have to consider colonoscopy. However at this time, she is fighting another cancer, may be better to hold it unless there are acute symptoms. 3. Significant progressive dilation of common bile duct and intrahepatic duct. Tumor cannot be ruled out. LFTs nearly normal at this time. The patient is without any symptoms of the right upper quadrant pain, etc. We will get an MRCP for further evaluation. 4. Neuroendocrine small-cell cancer of the lung. Thank you, Dr. Martinez for this interesting consult. We will follow along. Dictated by... Soledad Brewer/yakelin TD: 05/20/2017 04:11 JOB #: [id number] CONSULTATION REPORT Page 1 of 1 X Bassam Scherer MD X CONSULTATION REPORT
--- NOTE | ~2017-05-18 | CO ---
Unit #: [id number] #: [id number] Patient: RAGHU ESPINAL [id number] [address] [place], [place] [address] [id number] I MR#: [id number] NAME: RAGHU ESPINAL ROOM: 227 Age: 82 Sex: F Admission Date: 05/18/2017 : 1935 Attending Physician: Panda Hamlin M.D. Primary Care Physician: Devon Torres M.D. Consultation Date: 05/20/2017 CONSULTATION REPORT REASON FOR CONSULTATION Possible appendiceal mucocele. CONSULTING PHYSICIAN Dr. Hamlin. HISTORY OF PRESENT ILLNESS Thank you very much for asking us to see Ms. Espinal. She is an 82-year-old white female who has a past medical history remarkable for being treated for a small cell neuroendocrine lung cancer. She also has history of atrial fibrillation, gastroesophageal reflux disease, and a T12 compression fracture. She was admitted to the emergency room with a two to three week history of lower abdominal pain. She has quite a bit of pressure in the rectal area on straining to have a bowel movement. She has had decreased appetite. She is currently receiving chemotherapy and radiation therapy for her lung cancer. A CT scan of the abdomen and pelvis in the emergency room revealed the patient to have constipation and impaction with distention of the rectum. She underwent manual disimpaction in the emergency room and then also received large volume enemas. She feels dramatically better since that time. The CT scan also revealed a dilated common bile duct and a dilated gallbladder but no evidence of gallstones were seen. She was also found to have a tubular structure in the right lower quadrant. It was felt to possibly be an ovarian structure versus an appendiceal mucocele. She had MRCP performed which revealed no evidence of choledocholithiasis but a dilated common duct. There were indeed gallstones seen on MRCP. The tubular structure was again seen and was felt to possibly be an appendiceal mucocele versus an ovarian structure. She presents at this time for further evaluation and treatment. PAST MEDICAL HISTORY 1. Neuroendocrine carcinoma. 2. Atrial fibrillation. 3. GERD. PAST SURGICAL HISTORY Lung biopsy. SOCIAL HISTORY No tobacco or alcohol use. She is a former smoker. FAMILY HISTORY Rectal cancer and lung cancer. Unit #: [id number] #: [id number] Patient: RAGHU ESPINAL ALLERGIES No known medical allergies. MEDICATIONS Please see med rec sheet. IMMUNIZATION Immunization status unknown. REVIEW OF SYSTEMS Negative except for above. PHYSICAL EXAMINATION GENERAL: Well-developed, well-nourished, white female in no apparent distress. VITAL SIGNS: Afebrile. Vital signs stable. NECK: Supple. No thyromegaly or adenopathy. HEENT: Sclerae nonicteric. ABDOMEN: Flat, soft, and completely nontender. No rebound, peritoneal signs or masses. DIAGNOSTIC STUDIES LABORATORY: Laboratory studies reveal the patient to have a CMP that shows an alkaline phosphatase of 119 but all the rest of her liver function studies, especially her total bilirubin, were normal. The patient's white count is 7 with hemoglobin 8.8, hematocrit 26.4, MCV 87.5, and a platelet count of 132,000. Urinalysis was negative nitrites, trace leukocyte esterase. IMPRESSION An 82-year-old white female with tubular structure in the right lower quadrant. We feel she should have an ultrasound of the pelvis performed to further define this to see if it is of ovarian etiology or more clearly appendiceal mucocele. We also feel she should have a HIDA scan to determine if she has evidence of cholecystitis. If these are negative, she may need a colonoscopy or possibly a diagnostic laparoscopy. We will proceed accordingly after we obtain the studies. Dictated by... Ted Baker M.D. JOEL/kevin TD: 05/20/2017 15:10 JOB #: [id number] CC: [facility] Chris Duggan M.D. Unit #: [id number] #: [id number] Patient: RAGHU ESPINAL CONSULTATION REPORT Page 1 of 1 X Ted Baker MD X CONSULTATION REPORT
--- NOTE | ~2017-05-18 | US96 ---
[facility] A Service of [facility] & [facility] RADIOLOGY TEXT RESULTS PATIENT: RAGHU BANKS LOCATION: C2A 227-01 : 36 UNIT #: [id number] AGE: [address]: Steffi Reinoso MD SEX: F ORDER DR: [id number] [facility] [address] [place], [place] [address] [id number] I MR#: [id number] Acc #: [id number] NAME: RAGHU BANKS : 1935 SEX: F STUDY DATE/TIME: 05/20/2017 19:41 UNIT: C2A ROOM: 227 STUDY DESCRIPTION: US Pelvic Duplex Complete Attending Physician: Panda Hamlin M.D. Referring Physician: Chris Duggan M.D. Ordering Physician: Ted Baker M.D. Primary Care Physician: Devon Torres M.D. MEDICAL IMAGING REPORT This report is preliminary unless electronic signature is present EXAM Pelvic ultrasound HISTORY Pelvic pain for 2 weeks. TECHNIQUE Ultrasound examination pelvis was performed with transabdominal technique. FINDINGS No uterine mass or enlargement. Minimal fluid or debris along the endometrial canal. No endometrial thickening. The left ovary is not visualized. No definite right ovarian tissue is identified. In the right adnexa, there is an oval cystic structure, containing septations or debris, measuring nearly 7 cm in length. This may correspond to the similar appearing structure in the right pelvis on CT 05/07/2017 and in the right lower quadrant on CT 05/18/2017. The etiology is unclear, but considerations include mucocele of the appendix, given its proximity to the cecal tip on each of the prior CTs. A cystic ovarian mass is not excluded but is less likely given its change in position on the recent CT studies. No free fluid. IMPRESSION 1. There is an oval cystic mass in the right adnexa, containing septations or debris and this probably corresponds to the similar-appearing lesion on CT studies 04/07/2017 and 05/18/2017. On each of the prior CTs, this lesion was in close proximity to the tip of the cecum raising the possibility of an appendiceal mucocele. Follow-up CT abdomen and pelvis with oral and IV contrast may be useful. 2. Neither ovary is definitely identified. 3. Uterine contour is normal. Small amount of fluid or debris along the STS. [facility] A Service of [facility] & [facility] RADIOLOGY TEXT RESULTS PATIENT: RAGHU BANKS LOCATION: [facility] 227-01 : 36 UNIT #: [id number] AGE: [address]: Steffi Reinoso MD SEX: F ORDER DR: endometrial canal. Dictated by... Malachi Toussaint M.D. THIS IS AN ELECTRONICALLY VERIFIED REPORT Malachi Toussaint M.D. at 05/21/2017 4:31 PM DFL/pcl TD: 05/20/2017 20:42 JOB #: [id number] MEDICAL IMAGING REPORT Page 1 of 1 COPY
--- NOTE | ~2017-05-18 | MR146 ---
[facility] A Service of [facility] RADIOLOGY TEXT RESULTS PATIENT: RAGHU BANKS LOCATION: C2A 227-01 : 36 UNIT #: [id number] AGE: [address]: Panda Hamlin MD SEX: F ORDER DR: [id number] [facility] [address] [place], [place] [address] [id number] I MR#: [id number] Acc #: [id number] NAME: RAGHU BANKS : 1935 SEX: F STUDY DATE/TIME: 05/19/2017 23:58 UNIT: C2 ROOM: 227 STUDY DESCRIPTION: MR MRCP Wo Contrast Attending Physician: Panda Hamlin M.D. Referring Physician: Chris Duggan M.D. Ordering Physician: Bassam Scherer M.D. Primary Care Physician: Devon Torres M.D. MRI CENTER REPORT This report is preliminary unless electronic signature is present. EXAM MRI of the abdomen MRCP protocol. No contrast 05/19/2017 INDICATIONS 82-year-old female with a history of abnormal CT scan. Abnormal bowel movements for 3 days. History of lung cancer, currently undergoing chemotherapy and radiation therapy. Hypertension. Abnormal CT performed 05/18/2017 demonstrating intra and extrahepatic biliary ductal dilatation suggestive of possible common bile duct obstruction. MRCP requested for further assessment. TECHNIQUE Multiplanar, multisequence MRI of the abdomen was performed utilizing MRCP protocol with thick and thin slab imaging of the biliary tree. Imaging was performed without the administration of intravenous contrast at the request of the ordering healthcare provider. Correlation is made with CT 05/18/2017 FINDINGS Trace left and small right pleural effusions are new compared to the prior CT. Aorta demonstrates tortuosity but no distinct aneurysm. T1 signal intensity of the pancreas maintained. The pancreas is atrophic but there is no evidence of acute pancreatitis. The liver measures 16 cm craniocaudal. The spleen about 7.7 cm. There is no significant fatty infiltration of the liver or evidence of depositional disease. The pancreatic duct is top normal in diameter at 3 mm. At the level of the proximal body pancreas there are some prominent side branches which may reflect sequela of prior bouts of pancreatitis and should be correlated with patient history. Extrahepatic common bile duct is dilated up to 15 mm. There is intrahepatic biliary ductal dilatation measuring up STS. [facility] A Service of [facility] & [facility] RADIOLOGY TEXT RESULTS PATIENT: RAGHU BANKS LOCATION: A 227-01 : 36 UNIT #: [id number] AGE: [address]: Panda Hamlin MD SEX: F ORDER DR: to 8 mm centrally on the right and 10 mm centrally on the left. There is preferential intrahepatic biliary ductal dilatation extending into the left hepatic lobe to a mild degree. The gallbladder is distended up to 4 cm transverse and there is cholelithiasis. No distinct evidence of choledocholithiasis. Abrupt transition of the dilated common bile duct to a narrowed segment just proximal to the ampulla. This may reflect an underlying distal common bile duct stricture. Suggest further assessment with ERCP. There is a rim-calcified cyst or large calcified granuloma in the spleen, better demonstrated on prior CT. There is no T2 evidence of acute pancreatitis. Kidneys are nonobstructed and demonstrate mild cortical scarring right greater than left. There is a trace amount of perihepatic ascites. Hepatic parenchymal signal otherwise within normal limits. Evaluation of the solid abdominal organs is however degraded by noncontrast technique. Adrenal glands unremarkable. No adenopathy. Marrow signal unremarkable. On the coronal T2 images there is a T2 hyperintense tubular structure in the right lower quadrant. This measures up to 2.6 cm transverse. This corresponds to similar findings on the recent CT and cannot be further characterized on this study. Please refer to the prior CT report for further details and followup recommendations. IMPRESSION 1. Cholelithiasis without evidence of associated acute cholecystitis on MRI. Gallbladder is distended up to 4 cm transverse. 2. There is extra and intrahepatic biliary ductal dilatation without evidence of choledocholithiasis. Findings suspicious for distal common bile duct stricture near the ampulla. Maximum extrahepatic biliary diameter is 15 mm. Central intrahepatic ductal dilatation up to 10 mm, preferentially involving the left greater than right intrahepatic ducts as described. 3. Findings suggestive of prior bouts of pancreatitis. Pancreatic duct otherwise unremarkable. 4. Interval development of small right and trace left pleural effusions. 5. Trace perihepatic ascites. 6. Cortical scarring of the kidneys, right greater than left. 7. Tubular probable fluid-filled structure in the right lower quadrant of the abdomen/pelvis measures up to 2.6 cm. This was also described on the prior CT. Please see that report for further details and followup recommendations. Dictated by... Poli Hennessy M.D. THIS IS AN ELECTRONICALLY VERIFIED REPORT Poli Hennessy M.D. at 05/20/2017 1:52 PM KENDRICK/petar [facility] A Service of [facility] RADIOLOGY TEXT RESULTS PATIENT: RAGHU BANKS LOCATION: C2A 227-01 : 36 UNIT #: [id number] AGE: [address]: Panda Hamlin MD SEX: F ORDER DR: TD: 05/20/2017 09:05 JOB #: [id number] MRI CENTER REPORT Page 1 of 1 COPY
--- NOTE | ~2017-05-18 | CO ---
Unit #: [id number] #: [id number] Patient: RAGHU BANKS [id number] [address] [place], [place] [address] [id number] I MR#: [id number] NAME: RAGHU BANKS ROOM: 227 Age: 82 Sex: F Admission Date: 05/18/2017 : 1935 Attending Physician: Panda Hamlin M.D. Primary Care Physician: Devon Torres M.D. Requesting Physician: Chris Duggan M.D. Consultation Date: 05/19/2017 CONSULTATION REPORT REASON FOR EVALUATION Neutropenia and lung cancer. Please evaluate. HISTORY OF PRESENT ILLNESS The patient is an 82-year-old lady, well known to us, seen as an outpatient, with locally advanced small cell neuroendocrine carcinoma, currently on chemoradiotherapy. The patient presents with mild neutropenia, severe constipation and has dilated bile ducts that need to be further evaluated. On questioning her, she said that she was taking stool softeners without any benefit and did not have a bowel movement for several days. She started having severe abdominal discomfort and weakness. Her past history is mainly remarkable for neuroendocrine carcinoma treated by us and Dr. Duggan. She has had a T12 compression fracture with intractable pain in the past. This is causing mild neutropenia. History of atrial fibrillation, gastroesophageal reflux disease, T12 fracture as stated above and neuroendocrine carcinoma. FAMILY HISTORY Positive both for lung cancer and rectal cancer in several members. ALLERGIES No known drug allergies. CHRONIC MEDICATIONS 1. Duragesic patch 50 mcg. 2. Calcium. 3. Multivitamins. 4. Vitamin C. 5. Fish oil. 6. Prilosec. 7. Pravastatin. 8. Amiodarone. 9. Estradiol. REVIEW OF SYSTEMS Mainly remarkable for generalized weakness. No bowel movement for several days, with abdominal discomfort. Otherwise six or eight systems were within normal limits. PHYSICAL EXAMINATION GENERAL: Elderly lady in no acute distress. LYMPH: Very pleasant. No supraclavicular or axillary or groin nodes. LUNGS: Crackles. No rales. HEART: Distant S1 and S2. Unit #: [id number] #: [id number] Patient: RAGHU BANKS ABDOMEN: Scaphoid. Diffuse tenderness. No rebound. No rigidity. NEUROLOGIC: EMS EDUCATOR is grossly intact. PELVIS: Not performed. DIAGNOSTIC STUDIES LABORATORY: Chemistry, glucose 141, BUN 33, creatinine 1.1, sodium 131, potassium 3.2, chloride 90, CO2 30. Hemoglobin 11, hematocrit 32.2, white blood cell count 3,100, platelets 140,000. ASSESSMENT This 82-year-old lady, well known to us, neuroendocrine carcinoma on chemoradiotherapy presents with mild neutropenia and severe intractable constipation with dilated biliary system. PLAN Will continue the Duragesic patch at 50 mcg q.72 h. and treat her with Granix 480 mcg subcutaneous today. Check CBC in the morning. Agree with aggressive GI protocol for bowel movements. Subsequently we most probably will put her on Linzess 145 mcg p.o. daily to prevent future constipation related to her narcotics. Continue her radiochemotherapy as an outpatient. In the meantime, agree with MRCP of the liver and biliary system to right upper lobe out blockage. Dictated by... Soledad Francisco/ana TD: 05/20/2017 11:07 JOB #: [id number] CONSULTATION REPORT Page 1 of 1 X Homero Kasper MD X CONSULTATION REPORT
--- NOTE | ~2017-05-18 | OR ---
Unit #: [id number] #: [id number] Patient: RAGHU BANKS [id number] [address] [place], [place] [address] [id number] I MR#: [id number] NAME: RAGHU BANKS ROOM: 227 Date of Procedure: 05/19/2017 Admission Date: 05/18/2017 Surgeon: Bassam Scherer M.D. : 1935 Attending Physician: Panda Hamlin M.D. Referring Physician: Chris Duggan M.D. Primary Care Physician: Devon Torres M.D. OPERATIVE REPORT PREOPERATIVE DIAGNOSIS Esophagogastroduodenoscopy with biopsies. INDICATIONS FOR PROCEDURE An 82-year-old with significant dysphagia, poor oral intake, weight loss, undergoing evaluation with upper endoscopy. MEDICATIONS Monitored anesthesia. POSTOPERATIVE FINDINGS 1. Esophagitis with large amount of debris with ulceration at around 25 cm most likely due to radiation of esophagitis. 2. Multiple benign appearing esophageal rings in distal esophagus. No dilation attempted at this time. 3. Gastritis, appears chronic. Biopsies were taken. 4. Normal duodenum and distal duodenum. PLAN Aggressive PPI therapy. If continues to be symptomatic, consider dilation at a later date. DESCRIPTION OF PROCEDURE The patient was explained of the procedure, risks, and benefits along with risks and benefits of anesthesia. She was brought to the endoscopy room. Propofol anesthesia was given. Bite block was placed. The scope was passed down the mouth into esophagus, stomach, duodenum, and distal duodenum. Findings as described. Biopsies taken. Gently, the scope was pulled out. She tolerated it well. Dictated by... Soledad Brewer/yakelin TD: 05/19/2017 11:32 JOB #: [id number] CC: Soledad Francisco M.D. Unit #: [id number] #: [id number] Patient: RAGHU BANKS OPERATIVE REPORT Page 1 of 1 X Bassam Scherer MD PROCEDURE OPERATIVE NOTE
--- NOTE | ~2017-05-18 | CT2 ---
[facility] A Service of [facility] & [facility] RADIOLOGY TEXT RESULTS PATIENT: RAGHU BANKS LOCATION: C2A 227-01 : 36 UNIT #: [id number] AGE: [address]: Steffi Reinoso MD SEX: F ORDER DR: [id number] [facility] [address]. [place], [place] [address] [id number] I MR#: [id number] Acc #: [id number] NAME: RAGHU BANKS : 1935 SEX: F STUDY DATE/TIME: 05/21/2017 17:58 UNIT: C2 ROOM: [facility] STUDY DESCRIPTION: CT Abd and Pelv W Cont Attending Physician: Steffi Reinoso M.D. Referring Physician: Chris Duggan M.D. Ordering Physician: Ted Baker M.D. Primary Care Physician: Devon Torres M.D. MEDICAL IMAGING REPORT This report is preliminary unless electronic signature is present EXAM CT abdomen and pelvis with oral and IV contrast HISTORY Constipation for [address] exam was performed with one or more of the following radiation dose reduction techniques: automatic exposure control, adjustment of mA and/or kV according to patient size, and iterative reconstruction. FINDINGS CT abdomen and pelvis was performed with oral and IV contrast. CT ABDOMEN: Small right pleural effusion and minimal left pleural effusion are new compared to 05/18/2017. There is new mild atelectasis in the posterior lung bases. 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 Intra and extrahepatic biliary ductal dilatation is stable, with the common bile duct measuring 1.9 cm in diameter and the central intrahepatic ducts measuring up to 8 mm in diameter. Small hiatal hernia. Generalized pancreatic parenchymal atrophy. Multifocal parenchymal scarring in both kidneys. Incidental peripherally calcified 1.8 cm mass in the posterior margin of the spleen could be secondary old trauma or infection. Mild ectasia of the infrarenal abdominal aorta measuring 2.2 cm. Mild gallbladder distension and mild gallbladder wall thickening, could be secondary to edema or inflammation. No bowel dilatation. No ascites. CT PELVIS: Oval fluid density structure in the right pelvis is again demonstrated measuring close to 8.3 cm in length. This abuts the tip of the cecum, and could therefore represent a dilated appendix, and this has been previously noted on prior CT studies, in close proximity to the tip of the cecum.. Given its size, and lack of associated wall thickening or adjacent inflammation, an appendiceal mucocele should be considered, as [facility] A Service of [facility] & [facility] RADIOLOGY TEXT RESULTS PATIENT: RAGHU BANKS LOCATION: C2A 227-01 : 36 UNIT #: [id number] AGE: [address]: Steffi Reinoso MD SEX: F ORDER DR: suggested on pelvic ultrasound yesterday. No normal appendix is identified. There is either retained contrast or a small appendicolith at the appendiceal origin. Moderate sigmoid diverticulosis. Pessary in the vagina. The uterus and left adnexa are unremarkable. Urinary bladder is normal. IMPRESSION 1. 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 This measures close to 8.3 cm in length. There is either retained contrast or a small stone at the origin of the appendix at the cecal tip. 2. No adjacent inflammation in the pelvis and no free fluid. No abscess. 3. Intra and extrahepatic biliary ductal dilatation is stable compared to CT 05/18/2017. 4. Mild gallbladder distension and borderline to mild gallbladder wall thickening could be due to edema or inflammation. Depending on the patient's symptoms and history, consider further evaluation with HIDA scan. 5. 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 6. Parenchymal scarring in both kidneys. 7. Sigmoid diverticulosis. Dictated by... Malachi Toussaint M.D. THIS IS AN ELECTRONICALLY VERIFIED REPORT Malachi Toussaint M.D. at 05/22/2017 10:09 PM SHELIA/nola TD: 05/21/2017 23:27 JOB #: [id number] MEDICAL IMAGING REPORT Page 1 of 1 COPY
--- NOTE | ~2017-05-18 | CT4 ---
[facility] A Service of [facility] & [facility] RADIOLOGY TEXT RESULTS PATIENT: RAGHU BANKS LOCATION: [facility] 227-01 : 36 UNIT #: [id number] AGE: [address]: Panda Hamlin MD SEX: F ORDER DR: [id number] [facility] [address]. [place], [place] [address] [id number] E MR#: [id number] Acc #: [id number] NAME: RAGHU BANKS : 1935 SEX: F STUDY DATE/TIME: 05/18/2017 13:59 UNIT: MIGUELITO ROOM: STUDY DESCRIPTION: CT Abd and Pelv Wo Cont Attending Physician: Micha Zuniga M.D. Referring Physician: Chris Duggan M.D. Ordering Physician: Micha Zuniga M.D. Primary Care Physician: Devon Torres M.D. MEDICAL IMAGING REPORT This report is preliminary unless electronic signature is present EXAM CT abdomen and pelvis without contrast, 05/18/2017, 1359 hours. CLINICAL HISTORY 82-year-old woman with a diagnosis of lung carcinoma. Patient complains of abdominal pain and constipation today. COMPARISON PET/CT 04/07/2017 TECHNIQUE Helical noncontrasted images were obtained from the lung bases through the pubic symphysis. Sagittal and coronal reconstructions were performed. Total exam DLP 408 mGy-cm. This CT exam was performed with one or more of the following radiation dose reduction techniques: automatic exposure control, adjustment of mA and/or kV according to patient size, and iterative reconstruction. FINDINGS Images through the lung bases demonstrate no pleural effusions. There is a vague nodular left lower lobe area just posterior to the dome of the diaphragm, not appreciably changed from prior study. Images through the abdomen demonstrate no focal liver lesion. The patient has moderate intra and extrahepatic bile duct dilatation with dilated common bile duct measuring up to 2.8 cm. The gallbladder is distended without definite stones. Distal common bile duct measures 1.9 cm where it previously measured 1.8 cm. Intrahepatic ductal dilatation appears slightly increased from PET/CT 04/07/2017. Suggest correlation with lab values. There is no definite stone seen distally. No definite mass. The pancreas and pancreatic duct are normal. The adrenal glands are normal. There is no renal stone. Atherosclerotic change in the aorta is stable. [facility] A Service of [facility] RADIOLOGY TEXT RESULTS PATIENT: RAGHU BANKS LOCATION: C2A 227-01 : 36 UNIT #: [id number] AGE: [address]: Panda Hamlin MD SEX: F ORDER DR: Stomach and small bowel are unremarkable. There is a distended fluid-filled tubular structure in the right lower quadrant measuring up to 7.5 cm cephalocaudad by 4.1 cm transverse. This appears to be separate from the terminal ileum and the cecum. I cannot separate the appendix from this structure, however, there is no inflammation around this and this may be an additional loop of distal ileum. Correlate with patient's symptoms. Note that the patient had a tubular cystic structure in the right adnexa with similar measurement 7 x 1 x [address] 05/07/2017. The current structure is higher in the right lower quadrant medial to the cecum and cephalad to the previous location. I am not sure whether this is the same structure. Consider a followup CT with abdomen with oral and intravenous contrast. There is dense material within the colon and rectum. The stool is generally dense suggesting medication ingestion or prior oral contrast administration. The rectum is distended to a diameter 7.8 cm suggesting constipation/impaction. The patient is noted to have a new pessary device and the prolapse of the bladder and rectum has improved since the prior study. IMPRESSION 1. Vague nodular density posterior to the dome of the left hemidiaphragm felt likely unchanged from prior study. There is no pleural fluid. 2. There is fluid distension of the gallbladder with no stones or wall thickening. The intra and extrahepatic bile ducts are dilated and slightly increased from prior study. No definite stones or mass is seen. Suggest correlation with lab values to assess for possible common bile duct obstruction. The pancreas and pancreatic duct are normal. Consider MRCP or ERCP if warranted. 3. There is no definite distension of the stomach, small bowel, or colon. There is increased stool and increased density of the stool contents suggesting dense medication ingestion or prior contrast administration. There is no definite colonic wall thickening. There is dense stool distending the rectum to a diameter of 7.8 cm suggesting constipation or impaction. Note that the patient has a new pessary device present between the bladder and rectum. The degree of prolapse is improved from prior study. 4. There is a tubular to ovoid structure in the right lower quadrant inferior to the cecum which appears to be separate from the terminal ileum. I believe it is separate from the appendix but I am not certain. It measures 7.5 x 4.1 cm which is minimally larger than the right adnexal tubular to cystic process seen on 04/07/2017 measuring 7 x 1 x 3.7 cm. This projects higher in the right lower quadrant than on the prior study and is not clearly related to the right ovary. This is of uncertain etiology. If the patient has persistent symptoms, consider a follow up CT scan with good oral contrast administration and IV contrast administration if possible. [facility] A Service of [facility] RADIOLOGY TEXT RESULTS PATIENT: RAGHU BANKS LOCATION: C2A 227-01 : 36 UNIT #: [id number] AGE: [address]: Panda Hamlin MD SEX: F ORDER DR: STAT * RESULT Dictated by... Vivian Cali M.D. THIS IS AN ELECTRONICALLY VERIFIED REPORT Vivian Cali M.D. at 05/19/2017 9:24 AM JIN/tamela TD: 05/18/2017 14:57 JOB #: [id number] MEDICAL IMAGING REPORT Page 1 of 1 COPY
--- NOTE | ~2017-05-18 | A ---
[facility] Nutrition Therapy DATE: 05/19/17 Patient: RAGHU BANKS Physician: SHELDON Address: [address] Room/Bed: [address] [place] [address], Zip: [place] [address] Admit Date: 05/18/17 Date of : 36 Height: 5 7 Weight: 119 54 NUTRITIONAL ASSESSMENT: REASON: LOW BMI PT IS 82 Y.O. 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 PT SEEN FOR LOW BMI (UNDERWEIGHT). PT AND FAMILY AT BEDSIDE REPORT PT TO HAVE DECREASED PO INTAKE 2' DECREASED APPETITE PAST SEVERAL MONTHS D/T CHRONIC PAIN (SIDE EFFECTS OF CHEMO & RADIATION AND MEDICATIONS). PT ADDS DRINKING BOOST SHAKES AT HOME. PT AND FAMILY REPORT PT HAS LOST ~22# PAST 2 MONTHS/15% SEVERE WEIGHT LOSS NOTED. PER [facility], PT WEIGHED ~137# IN FEBRUARY 2017 AND ~132-136# IN MARCH 2017. THIS RD ENCOURAGED HIGH PROTEIN & HIGH KCAL FREQUENT MEALS + SUPPLEMENT INTAKE, PT AGREED TO ENSURE PUDDING ONCE DIET ADVANCES. PT CURRENTLY NPO 2' EGD SCHEDULED TODAY. PT AND FAMILY REPORTED NO DIET QUESTIONS AT THIS TIME. RD TO FOLLOW. SEE RECOMMENDATIONS BELOW. Dx: INADEQUATE PROTEIN-ENERGY INTAKE R/T DECREASED APPETITE, PMH, CURRENT DIAGNOSIS AEB PT & FAMILY REPORT ABOVE, LOW BMI OF 18.6, 88%IBW, 15% SEVERE WEIGHT LOSS NOTED IN PAST 2 MONTHS. Intervention: 1. NPO Monitoring, Evaluation and Goals: 1. ORAL INTAKE; ADVANCE DIET AND CONSUME/TOLERATE >50% OF MEALS 2. WEIGHTS; PROMOTE GRADUAL WEIGHT GAIN TOWARDS HEALTHY BMI; PREVENT FURTHER WEIGHT LOSS 3. LABS; K+ TO WNL [facility] Nutrition Therapy DATE: 05/19/17 Patient: RAGHU BANKS Physician: SHELDON Address: [address] Room/Bed: [address] [place] [address], Zip: [place] [address] Admit Date: 05/18/17 Date of : 36 Height: 5 7 Weight: 119 54 MONITOR: -DIET ADVANCEMENT/PO INTAKE/APPETITE -SUPPLEMENT INTAKE -WEIGHTS -LABS Recommendations: 1. 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 ONCE DIET ADVANCES, PLEASE ORDER BERTHA ENSURE PUDDING BID W/MEALS 3. APPRECIATE FAMILY AND STAFF TO ENCOURAGE SLOW GRADUAL PO INTAKE. ASSIST W/ORDERING MEALS NEEDED 4. CONTINUE APPROPRIATE BOWEL REGIMEN RD WILL F/U PER PROTOCOL PT IS MODERATELY COMPROMISED Respectfully, DRU ARSHAD MS, RD, LD [facility] cc: client file
--- NOTE | ~2017-05-18 | HP ---
Unit #: [id number] #: [id number] Patient: RAGHU BANKS [id number] [facility]. [place], [place] [address] [id number] MR#: [id number] NAME: RAGHU BANKS ROOM: Age: 82 Sex: F Admission Date: 05/18/2017 : 1935 Attending Physician: Micha Zuniga M.D. Referring Physician: Chris Duggan M.D. Primary Care Physician: Devon Torres M.D. HISTORY AND PHYSICAL CHIEF COMPLAINT Weakness. HISTORY OF PRESENT ILLNESS The patient is an 82-year-old female with past medical history o small cell neuroendocrine carcinoma, anemia, atrial fibrillation, GERD, T12 compression fracture, who presented to the emergency department for evaluation of the above. The patient states that she has had a two to three week history of lower abdominal pain. She reports pressure in the rectal area and straining with bowel movements. She states that she had been taking a stool softener. She states that she has had soft stool. She denies any vomiting. She has had decreased appetite. She has lost 22 pounds in the past two months. She is currently receiving chemotherapy and radiation for lung cancer. Today she was seeing Dr. Duggan for radiation and was sent to the emergency department for further evaluation. In the emergency department, initial pulse and blood pressure were 102 and 110/[address] of the abdomen and pelvis showed findings concerning for constipation or impaction with distention of the rectum. She underwent manual disimpaction in the emergency department. She also received 1 L of normal saline as well as an enema. She is being admitted to [facility] for evaluation and further treatment. PAST MEDICAL HISTORY 1. Admission to [facility] March 19, 2017 for a fall. 2. 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 She is receiving radiation and chemotherapy. The last radiation treatment was today. Last chemotherapy was almost two weeks ago. 3. T12 compression fracture. 4. Anemia. 5. Atrial fibrillation, not on chronic anticoagulation, maintained on amiodarone. 6. GERD. PAST SURGICAL HISTORY Lung biopsy. SOCIAL HISTORY The patient lives with her . There is no tobacco or alcohol use. She walks with a walker. She is a former smoker. Her code status is a Unit #: [id number] #: [id number] Patient: RAGHU BANKS full code. FAMILY HISTORY Notable for rectal cancer and lung cancer. ALLERGIES No known allergies. HOME MEDICATIONS Include: 1. Multivitamin daily. 2. Calcium plus D daily. 3. Vitamin C 500 mcg daily. 4. Prilosec 20 mg daily. 5. Pravastatin 20 mg daily. 6. Valsartan and hydrochlorothiazide 160/25 daily. 7. Fish oil 1200 mg daily. 8. Zofran 4 mg q.i.d. p.r.n. 9. Amiodarone 200 mg daily. 10. Estradiol q.3 months. 11. Duragesic patch 50 mcg q.72 h. REVIEW OF SYSTEMS A complete review of systems is negative except as indicated in the HPI. DIAGNOSTIC STUDIES LABORATORY: Complete blood count notable for hemoglobin and hematocrit of 11 and 32.2 respectively. Comprehensive metabolic panel notable for sodium of 131, potassium of 3.2, chloride is 90, glucose 141, BUN and creatinine 33 and 1.1 respectively, alkaline phosphatase 169, albumin is 3.4, amylase and lipase are normal. Urinalysis notable for trace leukocyte esterase, 1+ ketones, 100 glucose IMAGING: CT of the abdomen and pelvis shows fluid distention of the gallbladder with no stones or wall thickening. Intra and extrahepatic bile ducts are dilated, slightly increased from prior studies but no definite stones or mass are seen. Findings concerning for constipation or impaction. There is also a tubular structure in the right lower quadrant inferior to the cecum. Repeat CT with contrast is recommended. PHYSICAL EXAMINATION VITAL SIGNS: Temperature is 97.5. Pulse 102. Respirations 16. Blood pressure 110/53. Oxygen saturation 100% on room air. GENERAL: The patient is a female who is awake and alert, in no acute distress. HEENT: The head is atraumatic. Mucous membranes are dry. NECK: Neck is supple. Trachea is midline. CARDIOVASCULAR: Regular rate and rhythm. LUNGS: Lungs are clear to auscultation bilaterally with no increased work of breathing. ABDOMEN: Abdomen is mildly tender to palpation throughout. Bowel sounds are present in all four quadrants. EXTREMITIES: Nontender, with no pedal edema. NEUROLOGIC: The patient is awake and alert. She follows commands. PSYCHIATRIC: Mood and affect are normal. The patient is cooperative. SKIN: Skin of examined areas is warm and dry. Unit #: [id number] #: [id number] Patient: RAGHU BANKS The patient is an 82-year-old female with: 1. Abdominal pain secondary to #2. 2. Fecal impaction. The patient is on Duragesic patch. She has been taking stool softeners with minimal relief. She received 1 L of normal saline in the emergency department as well as an enema. She likely needs a bowel regimen as an outpatient, possibly to include Amitiza. 3. Hypokalemia with a potassium of 3.2. 4. Hyponatremia. The patient's sodium has been as low as 119 on March 21, 2017. It is 131 today likely secondary to syndrome of inappropriate antidiuretic hormone. 5. Small cell neuroendocrine carcinoma, followed by Drs. Kasper and Urban, currently receiving radiation (last treatment today) and chemotherapy (last treatment about two weeks ago). 6. Abnormal CT of the abdomen and pelvis. The patient has questionable intra and extrahepatic bile duct dilatation. AST and ALT are normal. Alkaline phosphatase is 169 and has previously been as high as 108. Additionally a soft tissue density is noted (tubular to ovoid structure) in the right lower quadrant of uncertain etiology. The patient may need additional imaging. 7. Anemia. The patient's hemoglobin was 10.7 on March 24, 2017. It is 11 today. 8. Atrial fibrillation, maintained on Amiodarone. Not on chronic anticoagulation. 9. Gastroesophageal reflux disease. 10. Thoracic 12 compression fracture. 11. Weight loss. The patient has lost 22 pounds over the past two months. 12. Former smoker. PLAN 1. Admit to med/surg for observation. 2. Healthy heart diet. 3. Normal saline at 75 mL an hour. 4. SMOG enema. 5. MiraLAX. 6. Replace potassium. 7. Check magnesium level. 8. Consult Dr. Scherer regarding intra and extrahepatic biliary ductal dilatation and possible need for ERCP. 9. SCDs for DVT prophylaxis. 10. Additional workup and consultants based on above. Dictated by Soledad Zaidi/asaf TD: 05/18/2017 16:50 JOB #: [id number] Unit #: [id number] #: [id number] Patient: RAGHU BANKS HISTORY AND PHYSICAL Page 1 of 1 X Jayna Martinez MD X HISTORY AND PHYSICAL
--- NOTE | ~2017-05-18 | NM21 ---
[facility] A Service of [facility] & [facility] RADIOLOGY TEXT RESULTS PATIENT: RAGHU BANKS LOCATION: A 227-01 : 36 UNIT #: [id number] AGE: [address]: Steffi Reinoso MD SEX: F ORDER DR: [id number] [facility] [address] [place], [place] [address] [id number] I MR#: [id number] Acc #: [id number] NAME: RAGHU BANKS : 1935 SEX: F STUDY DATE/TIME: 05/21/2017 9:14 UNIT: [facility] ROOM: [facility] STUDY DESCRIPTION: NM Hepatobiliary W GB Attending Physician: Steffi Reinoso M.D. Referring Physician: Chris Duggan M.D. Ordering Physician: Ted Baker M.D. Primary Care Physician: Devon Torres M.D. MEDICAL IMAGING REPORT This report is preliminary unless electronic signature is present EXAM NM Hepatobiliary W GB INDICATION Biliary dilatation and cholelithiasis. TECHNIQUE Patient was administered 5.7 mCi of technetium 99m Choletec. Special images were obtained over the right upper quadrant. FINDINGS There is prompt and homogeneous radiotracer uptake seen within the liver. Patient is noted to have radiotracer accumulation seen centrally but it is difficult to definitively identify the gallbladder, however I do think it is probably present on both the 90 and 120 minute images when it is correlated with the patient's MRI which was performed yesterday. Radiotracer is seen within the small bowel on 45-minute images. IMPRESSION No evidence of acute cholecystitis. Dictated by... Elizabeth Vela M.D. THIS IS AN ELECTRONICALLY VERIFIED REPORT Elizabeth Vela M.D. at 05/21/2017 4:49 PM AFF/rnr TD: 05/21/2017 13:30 JOB #: [id number] MEDICAL IMAGING REPORT Page 1 of 1 COPY
--- NOTE | ~2017-05-18 | DS ---
Unit #: [id number] #: [id number] Patient: RAGHU BANKS [id number] [address] [place], [place] [address] [id number] MR#: [id number] NAME: RAGHU BANKS ROOM: 227 Age: 82 Sex: F Admission Date: 05/18/2017 : 1935 Discharge Date: Attending Physician: Steffi Reinoso M.D. Referring Physician: Chris Duggan M.D. Primary Care Physician: Devon Torres M.D. DISCHARGE SUMMARY DISCHARGE DIAGNOSES 1. Abdominal pain, likely from fecal impaction from opiates. 2. 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 3. Gastritis and esophagogastroduodenoscopy 4. 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 5. 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 Patient received radiation and chemotherapy. Last radiation treatment was on 05/18/2017. Last chemotherapy was two weeks ago. 6. History of T12 compression fracture. 7. Anemia, likely from chemotherapy. 8. Atrial fibrillation not on anticoagulation, on amiodarone. 9. Gastroesophageal reflux disease. 10. Hypokalemia. 11. Metabolic acidosis. 12. Hypocalcemia. 13. Hypermagnesemia. 14. Moderate protein malnutrition. 15. Underweight with moderate calorie malnutrition. CONSULTANTS Dr. Scherer and Dr. Baker. PROCEDURES 1. 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 2. CAT scan of the abdomen and pelvis shows appendiceal mucocele with oval fluid density near the tip of the cecum. Mild gallbladder distention present. 3. HIDA scan normal. 4. Ultrasound of the pelvis shows oval cystic mass in the right adnexa. 5. WBC 9.1, hemoglobin 8.9, platelets 130. 6. Sodium 137, potassium 3.4, creatinine 0.6, carbon dioxide 21, magnesium 1.5, albumin 2.5. 7. MRCP shows cholelithiasis. No evidence of acute cholecystitis. Extra and intrahepatic biliary duct dilatation present and findings suggestive of prior (1) of pancreatitis. ALLERGIES None. DISCHARGE MEDICATIONS 1. Amiodarone 200 p.o. daily. Unit #: [id number] #: [id number] Patient: RAGHU BANKS 2. Magnesium oxide 400 p.o. daily. 3. Zofran 4 mg 4 times daily p.r.n. nausea. 4. Estradiol vaginal ring every three months. 5. Pravastatin 20 daily. 6. Diovan 160 mg p.o. daily. 7. MiraLAX 17 g daily. 8. Fish oil 1200 mg p.o. daily. 9. Multivitamin 1 tablet daily. 10. Fentanyl 60 mcg topically every 72 hours patch. 11. Protonix 40 mg p.o. daily. 12. Calcium with vitamin D 600 mg p.o. daily. 13. Potassium 40 mEq p.o. daily. 14. Ascorbic acid 200 mg p.o. daily. HOSPITAL COURSE 82-year-old admitted because of abdominal pain. Abdominal pain, most likely from severe fecal impaction and constipation. 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 Also patient was worked up for acute cholecystitis by surgeon with abnormal CT. HIDA scan negative. Surgeon did not think she needs ago surgical intervention. No acute cholecystitis. Currently pain better. She had a bowel movement. Currently monitoring and follow with [facility] in two weeks time. Severe electrolyte imbalance with hypokalemia, hypermagnesemia, metabolic acidosis. Patient received electrolytes. I am going to discharge her on p.o. potassium and p.o. magnesemia. Moderate calorie protein malnutrition with underweight. Continue with high calorie diet at home. Small cell neuroendocrine cancer. Follow with Dr. Kasper. Atrial fibrillation. Continue the amiodarone. The patient is not on anticoagulation since admission. FOLLOWUP Discharge home to follow with family physician in one week time. Follow with Dr. Baker in two weeks time. Follow with Dr. Scherer in two weeks time. Follow with Dr. Kasper in two to three weeks time. Dictated by... Soledad Lewis TD: 05/22/2017 12:44 JOB #: [id number] Unit #: [id number] #: [id number] Patient: RAGHU BANKS DISCHARGE SUMMARY Page 1 of 1 X Steffi Reinoso MD DISCHARGE SUMMARY
[~2017-05-18 09:35] MED LIST changes: -AMIODARONE HCL200 MG PO; -CALCIUM 600 +1 EAC4 PO; -DIOVAN160 MG PO; -DURAGESIC1 EAC2 TOP; -ESTRING1 EACH VAG; -FISH OIL 1,2001 CAP PO; -KLOR-CON PO; -LISINOPRIL20 MG PO; -MAGNESIUM400 M1 PO; -MIRALAX17 GM PO; -PATIENT'S PHARMACY; -PRAVASTATIN SOD20 MG PO; -PROTONIX PO; -VITAMIN C500 MG PO; -ZOFRAN PO
[2017-05-18 10:55] LABS: EOSINOPHIL% 0.1 % (0.0-7.0); HEMATOCRIT 32.2 % (35.0-45.0); LYMPHOCYTE# 0.1 X10e3 (1.0-3.5); LYMPHOCYTE% 2.9 % (17.0-45.0); MEAN CELL VOLUME 86.6 FL (83-96); MEAN CORPUSCULAR HEMOGLOBIN 29.7 PG (28-34); MEAN CORPUSCULAR HGB CONC 34.3 g/dL (30-36); MEAN PLATELET VOLUME 7.1 FL (6.5-11.5); MONOCYTE# 0.3 X10e3 (0-1.0); NEUTROPHIL# 3.9 X10e3 (1.5-7.1); PLATELET COUNT 148 X10e3 (140-420); RED BLOOD COUNT 3.72 X10e (3.90-5.30); RED CELL DISTRIBUTION WIDTH 13.3 % (11.0-15.5); WHITE BLOOD COUNT 4.3 X10e3 (4.0-10.5)
[2017-05-18 10:56] LABS: DIFF IND NO
[2017-05-18 11:26] LABS: ALBUMIN SERUM 3.4 g/dL (3.5-5.0); BILIRUBIN, DIRECT 0.3 mg/dL (0.0-0.2); BILIRUBIN,INDIRECT 0.4 mg/dL (0.0-0.9); BILIRUBIN,TOTAL 0.7 mg/dL (0.2-2.0); CALCIUM SERUM 9.5 mg/dL (8.4-10.2); CREATININE SERUM 1.1 mg/dL (0.6-1.4); GLOM FILT RATE Estimated 47.1 mL/min (>60); POTASSIUM 3.2 mmol/L (3.5-5.1); PROTEIN TOTAL SERUM 7.1 g/dL (6.0-8.3)
[2017-05-18 14:21] LABS: URINE SOURCE CLEAN CATCH
[2017-05-18 14:29] LABS: URINE APPEARANCE CLEAR; URINE BLOOD NEG (NEG); URINE COLOR DK YELLOW; URINE GLUCOSE 100 MG/DL (NEG); URINE KETONE 1+ (NEG); URINE LEUKOCYTE ESTERASE TRACE (NEG); URINE NITRATE NEG (NEG); URINE PROTEIN NEG (NEG); URINE SPECIFIC GRAVITY 1.021 (1.003-1.035)
[2017-05-18 14:32] LABS: URBCS1 AUWI 0-2 /[HPF] (0-2); URINE BACTERIA AUWI NEG (NEGATIVE); URINE SQUAMOUS EPITHELIAL CELL NONE SEEN /[HPF]; UWBCS1 AUWI 0-2 (0-5)
[2017-05-18 14:34] LABS: CULTURE INDICATED? NO
[2017-05-18] MEDS ORDERED: PATIENT'S PHARMACY (15:54)
[2017-05-18] MEDS ORDERED: MULTIVITAMINS1 EAC3 PO (15:54)
[2017-05-18] MEDS ORDERED: CALCIUM 600 +1 EAC4 PO (15:54)
[2017-05-18] MEDS ORDERED: PRILOSEC PO (15:55)
[2017-05-18] MEDS ORDERED: VITAMIN C500 MG PO (15:55)
[2017-05-18] MEDS ORDERED: PRAVASTATIN SOD20 MG PO (15:55)
[2017-05-18] MEDS ORDERED: VALSARTAN-HCTZ1 EAC2 PO (15:56)
[2017-05-18] MEDS ORDERED: FISH OIL 1,2001 CAP PO (15:56)
[2017-05-18] MEDS ORDERED: ZOFRAN PO (15:57)
[2017-05-18] MEDS ORDERED: ESTRING1 EACH VAG (15:57)
[2017-05-18] MEDS ORDERED: AMIODARONE HCL200 MG PO (15:57)
[2017-05-18] MEDS ORDERED: DURAGESIC1 EAC2 TOP (15:58)
[2017-05-19 05:29] LABS: BASOPHIL% 0.1 % (0-2.5); EOSINOPHIL% 0.4 % (0.0-7.0); HEMATOCRIT 29.1 % (35.0-45.0); HEMOGLOBIN 9.9 gm/dL (12.0-16.0); LYMPHOCYTE# 0.3 X10e3 (1.0-3.5); LYMPHOCYTE% 10.3 % (17.0-45.0); MEAN CORPUSCULAR HEMOGLOBIN 29.5 PG (28-34); MEAN CORPUSCULAR HGB CONC 33.9 g/dL (30-36); MEAN PLATELET VOLUME 7.2 FL (6.5-11.5); MONOCYTE# 0.2 X10e3 (0-1.0); MONOCYTE% 7.6 % (3.0-12.0); NEUTROPHIL# 2.6 X10e3 (1.5-7.1); NEUTROPHIL% 81.6 % (40-75); PLATELET COUNT 140 X10e3 (140-420); RED BLOOD COUNT 3.35 X10e (3.90-5.30); RED CELL DISTRIBUTION WIDTH 13.6 % (11.0-15.5); WHITE BLOOD COUNT 3.1 X10e3 (4.0-10.5)
[2017-05-19 05:51] LABS: DIFF IND NO
[2017-05-19 06:25] LABS: ALBUMIN SERUM 2.8 g/dL (3.5-5.0); BILIRUBIN,TOTAL 0.8 mg/dL (0.2-2.0); BUN/CREATININE RATIO 27.14; CALCIUM SERUM 8.8 mg/dL (8.4-10.2); CREATININE SERUM 0.7 mg/dL (0.6-1.4); GLOM FILT RATE Estimated 81.3 mL/min (>60); MAGNESIUM 1.9 mg/dL (1.6-3.0); PROTEIN TOTAL SERUM 5.6 g/dL (6.0-8.3)
[2017-05-20 06:15] LABS: HEMATOCRIT 26.4 % (35.0-45.0); HEMOGLOBIN 8.8 gm/dL (12.0-16.0); MEAN CELL VOLUME 87.5 FL (83-96); MEAN CORPUSCULAR HEMOGLOBIN 29.2 PG (28-34); MEAN CORPUSCULAR HGB CONC 33.3 g/dL (30-36); MEAN PLATELET VOLUME 6.9 FL (6.5-11.5); RED BLOOD COUNT 3.01 X10e (3.90-5.30); RED CELL DISTRIBUTION WIDTH 13.6 % (11.0-15.5)
[2017-05-20 07:19] LABS: ALBUMIN SERUM 2.4 g/dL (3.5-5.0); BILIRUBIN,TOTAL 0.8 mg/dL (0.2-2.0); BUN/CREATININE RATIO 21.42; CALCIUM SERUM 8.4 mg/dL (8.4-10.2); CREATININE SERUM 0.7 mg/dL (0.6-1.4); GLOM FILT RATE Estimated 81.3 mL/min (>60); MAGNESIUM 1.6 mg/dL (1.6-3.0); POTASSIUM 3.5 mmol/L (3.5-5.1); PROTEIN TOTAL SERUM 5.4 g/dL (6.0-8.3)
[2017-05-21 05:30] LABS: HEMATOCRIT 25.7 % (35.0-45.0); HEMOGLOBIN 8.9 gm/dL (12.0-16.0); MEAN CELL VOLUME 86.7 FL (83-96); MEAN CORPUSCULAR HEMOGLOBIN 29.9 PG (28-34); MEAN CORPUSCULAR HGB CONC 34.5 g/dL (30-36); MEAN PLATELET VOLUME 7.3 FL (6.5-11.5); RED BLOOD COUNT 2.97 X10e (3.90-5.30); RED CELL DISTRIBUTION WIDTH 13.6 % (11.0-15.5); WHITE BLOOD COUNT 9.1 X10e3 (4.0-10.5)
[2017-05-21 06:16] LABS: ALBUMIN SERUM 2.4 g/dL (3.5-5.0); BILIRUBIN,TOTAL 0.9 mg/dL (0.2-2.0); BUN/CREATININE RATIO 12.5; CALCIUM SERUM 8.3 mg/dL (8.4-10.2); CREATININE SERUM 0.8 mg/dL (0.6-1.4); GLOM FILT RATE Estimated 69.2 mL/min (>60); MAGNESIUM 1.5 mg/dL (1.6-3.0); POTASSIUM 3.1 mmol/L (3.5-5.1)
[2017-05-22 07:31] LABS: HEMATOCRIT 27.1 % (35.0-45.0); HEMOGLOBIN 9.3 gm/dL (12.0-16.0); MEAN CELL VOLUME 87.1 FL (83-96); MEAN CORPUSCULAR HEMOGLOBIN 29.9 PG (28-34); MEAN CORPUSCULAR HGB CONC 34.3 g/dL (30-36); MEAN PLATELET VOLUME 6.4 FL (6.5-11.5); RED BLOOD COUNT 3.12 X10e (3.90-5.30); RED CELL DISTRIBUTION WIDTH 13.8 % (11.0-15.5); WHITE BLOOD COUNT 4.6 X10e3 (4.0-10.5)
[2017-05-22 08:07] LABS: ALBUMIN SERUM 2.5 g/dL (3.5-5.0); BUN/CREATININE RATIO 13.33; CALCIUM SERUM 8.3 mg/dL (8.4-10.2); CREATININE SERUM 0.6 mg/dL (0.6-1.4); GLOM FILT RATE Estimated 85.5 mL/min (>60); MAGNESIUM 1.5 mg/dL (1.6-3.0); POTASSIUM 3.4 mmol/L (3.5-5.1); PROTEIN TOTAL SERUM 5.4 g/dL (6.0-8.3)
[2017-05-22] MEDS ORDERED: MAGNESIUM400 M1 PO (12:48)
[2017-05-22] MEDS ORDERED: MIRALAX17 GM PO (12:49)
[2017-05-22] MEDS ORDERED: DIOVAN160 MG PO (12:51)
[2017-05-22] MEDS ORDERED: PROTONIX PO (12:52)
[2017-05-22] MEDS ORDERED: KLOR-CON PO (12:54)
[2017-07-08] MEDS ORDERED: LISINOPRIL20 MG PO (04:44)
== END 2017-05-22 13:28 | disposition home or self-care (01) | DRG 389 ==
LOC: CED 09:35 → CEDOF 16:10 → C2A 16:10 → CED 16:22 → CEDOF 16:22 → C2A 23:55
PROVIDERS: Emergency Medicine; Family Medicine; Internal Medicine; Internal Medicine Medical Oncology; Surgery
PROC: 0DCP7ZZ Extirpation of Matter from Rectum, Via Natural or Artificial Opening (ICD-10-PCS; principal; 2017-05-18)
PROC: 0DB68ZX Excision of Stomach, Via Natural or Artificial Opening Endoscopic, Diagnostic (ICD-10-PCS; 2017-05-19 10:21)
DX: K56.41 Fecal impaction (principal); C7A.8 Other malignant neuroendocrine tumors; E87.2 Acidosis; E44.0 Moderate protein-calorie malnutrition; D70.9 Neutropenia, unspecified; K22.10 Ulcer of esophagus without bleeding; E83.41 Hypermagnesemia; E87.1 Hypo-osmolality and hyponatremia; I48.91 Unspecified atrial fibrillation; Z68.1 Body mass index [BMI] 19.9 or less, adult; T40.605A Adverse effect of unspecified narcotics, initial encounter; Y92.9 Unspecified place or not applicable; K29.70 Gastritis, unspecified, without bleeding; D64.81 Anemia due to antineoplastic chemotherapy; T45.1X5A Adverse effect of antineoplastic and immunosuppressive drugs, initial encounter; K21.9 Gastro-esophageal reflux disease without esophagitis; E87.6 Hypokalemia; E83.51 Hypocalcemia; M48.54XD Collapsed vertebra, not elsewhere classified, thoracic region, subsequent encounter for fracture with routine healing; Z87.891 Personal history of nicotine dependence; R13.10 Dysphagia, unspecified; K83.8 Other specified diseases of biliary tract; K38.8 Other specified diseases of appendix; E86.0 Dehydration
CPT/HCPCS: 36415; 51702; 74176; 74177; 74181; 78226; 80048; 80053; 80076; 81003; 82150; 83690; 83735; 84132; 85025; 85027; 88305; 88312; 93975; 96360; 99285; A9537; C9113; J1170; J1447; J1650; Q9967

== ENCOUNTER 2017-06-01 07:46 | Emergency (ER) | payer OTHER ==
[~2017-06-01] VITALS: Ht 167.6 cm; Wt 54.0 kg
--- NOTE | ~2017-06-01 | EKG ---
PATIENT: RAGHU BANKS UNIT #: [id number] Ventricular Rate: 83 BPM Atrial Rate: 83 BPM P-R Interval: 136 ms QRS Duration: 82 ms Q-T Interval: 354 ms QTC Calculation(Bezet): 415 ms P Allison: 52 degrees Calculated R Allison: 24 degrees Calculated T Allison: 107 degrees Diagnosis Line: Normal sinus rhythm Diagnosis Line: Septal infarct , age undetermined Diagnosis Line: Abnormal ECG Diagnosis Line: When compared with ECG of 19-MAR-2017 10:50, Diagnosis Line: Premature atrial complexes are no longer Present Diagnosis Line: Incomplete left bundle branch block is no longer Diagnosis Line: Present Diagnosis Line: Septal infarct is now Present Diagnosis Line: T wave inversion no longer evident in Inferior Diagnosis Line: leads Diagnosis Line: Nonspecific T wave abnormality has replaced Diagnosis Line: inverted T waves in Lateral leads Diagnosis Line: Confirmed by HEATHER FLORES MD ([id number]) on 06/01/2017 Diagnosis Line: 6:29:40 PM INTERPRETING MD: MARK BEJARANO
--- NOTE | ~2017-06-01 | CT71 ---
[facility] A Service of [facility] & [facility] RADIOLOGY TEXT RESULTS PATIENT: RAGHU BANKS LOCATION: [facility] : [birth year] UNIT #: [id number] AGE: [address]: Roly Dunaway MD SEX: F ORDER DR: [id number] [facility] [address] [place], [place] [address] [id number] MR#: [id number] Acc #: [id number] NAME: RAGHU BANKS : 1935 SEX: F STUDY DATE/TIME: 06/01/2017 8:56 UNIT: [facility] ROOM: STUDY DESCRIPTION: CT Head Wo Contrast Attending Physician: Roly Dunaway M.D. Ordering Physician: Roly Dunaway M.D. Primary Care Physician: Devon Torres M.D. MEDICAL IMAGING REPORT This report is preliminary unless electronic signature is present EXAM Head 06/01/2017 HISTORY Weakness, dizziness started last p.m. near-syncope, lightheaded today. Former smoker. High blood pressure. Diagnosed 2 months ago. Lung cancer for chemo 1 week ago. Radiation Thursday, last treatment. TECHNIQUE CT head performed skull base through vertex without intravenous contrast. This CT exam was performed with one or more of the following radiation dose reduction techniques: Automatic exposure control, adjustment of mA and/or kV according to patient size, and iterative reconstruction. COMPARISON 03/19/2017 FINDINGS Brainstem unremarkable. Cerebellum and cerebral hemispheres show normal mandujano matter-white matter differentiation. No hemorrhage. No evidence of acute cortical ischemia. There are periventricular and deep white matter tract hypodensities likely reflecting sequelae of chronic microvascular ischemia based on age and statistics. No acute-appearing basal ganglia abnormality. The intraorbital soft tissues are unremarkable. There is no intra- or extra-axial mass effect or abnormal intracranial fluid collection. The visualized paranasal sinuses and mastoid air cells are clear. No fracture. IMPRESSION 1. No acute abnormality seen in the brain. If patient has ongoing neurologic symptoms, consider follow up imaging, preferably with MRI if patient remains a candidate. 2. There are mild periventricular and deep white matter tract [facility] A Service of [facility] & [facility] RADIOLOGY TEXT RESULTS PATIENT: RAGHU BANKS LOCATION: [facility] : 37 UNIT #: [id number] AGE: [address]: Roly Dunaway MD SEX: F ORDER DR: probable sequelae of chronic microvascular ischemia. 3. Mild atrophic change. Dictated by.. . Edis Macdonald M.D. THIS IS AN ELECTRONICALLY VERIFIED REPORT Edis Macdonald M.D. at 06/01/2017 5:45 PM Tylor TD: 06/01/2017 12:20 JOB #: [id number] MEDICAL IMAGING REPORT Page 1 of 1 COPY
[~2017-06-01 07:46] MED LIST changes: +AMIODARONE HCL200 MG PO; +CALCIUM 600 +1 EAC4 PO; +DIOVAN160 MG PO; +DURAGESIC1 EAC2 TOP; +ESTRING1 EACH VAG; +FISH OIL 1,2001 CAP PO; +KLOR-CON PO; +MAGNESIUM400 M1 PO; +MIRALAX17 GM PO; +PATIENT'S PHARMACY; +PRAVASTATIN SOD20 MG PO; +PROTONIX PO; +VITAMIN C500 MG PO; +ZOFRAN PO
[2017-06-01 08:30] LABS: POC - CKMB <1.0 ng/mL (0.0-7.9); POC - TROPONIN <0.05 ng/mL (<=0.05)
[2017-06-01 08:40] LABS: BASOPHIL% 0.1 % (0-2.5); EOSINOPHIL% 0.3 % (0.0-7.0); HEMATOCRIT 26.4 % (35.0-45.0); HEMOGLOBIN 9.2 gm/dL (12.0-16.0); LYMPHOCYTE# 0.2 X10e3 (1.0-3.5); LYMPHOCYTE% 5.1 % (17.0-45.0); MEAN CELL VOLUME 87.4 FL (83-96); MEAN CORPUSCULAR HEMOGLOBIN 30.4 PG (28-34); MEAN CORPUSCULAR HGB CONC 34.8 g/dL (30-36); MEAN PLATELET VOLUME 7.2 FL (6.5-11.5); MONOCYTE# 0.2 X10e3 (0-1.0); MONOCYTE% 4.2 % (3.0-12.0); NEUTROPHIL# 3.9 X10e3 (1.5-7.1); NEUTROPHIL% 90.3 % (40-75); PLATELET COUNT 254 X10e3 (140-420); RED BLOOD COUNT 3.01 X10e (3.90-5.30); RED CELL DISTRIBUTION WIDTH 14.7 % (11.0-15.5); WHITE BLOOD COUNT 4.3 X10e3 (4.0-10.5)
[2017-06-01 08:41] LABS: DIFF IND NO
[2017-06-01 09:01] LABS: ALBUMIN SERUM 3.2 g/dL (3.5-5.0); BILIRUBIN, DIRECT 0.2 mg/dL (0.0-0.2); BILIRUBIN,INDIRECT 0.8 mg/dL (0.0-0.9); BUN/CREATININE RATIO 16.66; CALCIUM SERUM 8.8 mg/dL (8.4-10.2); CREATININE SERUM 0.9 mg/dL (0.6-1.4); PROTEIN TOTAL SERUM 6.6 g/dL (6.0-8.3)
[2017-06-01 10:05] LABS: URINE SOURCE CLEAN CATCH
[2017-06-01 10:12] LABS: URINE APPEARANCE CLOUDY; URINE BILIRUBIN NEG (NEG); URINE BLOOD TRACE (NEG); URINE COLOR YELLOW; URINE GLUCOSE NEG (NEG); URINE KETONE NEG (NEG); URINE LEUKOCYTE ESTERASE 3+ (NEG); URINE NITRATE NEG (NEG); URINE PH 7.5 (5-8); URINE PROTEIN TRACE (NEG); URINE SPECIFIC GRAVITY 1.009 (1.003-1.035)
[2017-06-01 10:15] LABS: CULTURE INDICATED? YES; URINE BACTERIA AUWI 4+ (NEGATIVE); URINE SQUAMOUS EPITHELIAL CELL OCC /[HPF]; UWBCS1 AUWI 200-300 (0-5)
[2017-07-08] MEDS ORDERED: LISINOPRIL20 MG PO (04:44)
== END 2017-06-01 11:13 | disposition home or self-care (01) ==
LOC: CED 07:46
PROVIDERS: Emergency Medicine
DX: S09.90XA Unspecified injury of head, initial encounter (principal); N30.00 Acute cystitis without hematuria; Z88.8 Allergy status to other drugs, medicaments and biological substances; I10 Essential (primary) hypertension; K21.9 Gastro-esophageal reflux disease without esophagitis; W18.30XA Fall on same level, unspecified, initial encounter
CPT/HCPCS: 36415; 70450; 80048; 80076; 81003; 82553; 84484; 85025; 87086; 87088; 87186; 93005; 96361; 96365; 99285; J0696